=== PATIENT | male | born 1945 | race Caucasian/White ===

== ENCOUNTER 2018-01-28 12:19 | Outpatient (CLI) | payer MEDICARE, BC ==
--- NOTE | 2018-01-28 14:06 | RAD ---
TWO VIEWS CHEST: Date: 01-28-18 Comparison: 07-08-17 History: Dyspnea. FINDINGS: Increased linear interstitial density with pulmonary hyperinflation noted. Midline sternotomy wires a re present. No pneumothorax, pleural fluid, focal consolidation, or alveolar edema. IMPRESSION: Chronic findings as above. No acute findings are seen. POS: [facility]
== END 2018-01-28 12:20 | disposition home or self-care (01) ==
LOC: RAD 12:19
PROVIDERS: ATTEND Internal Medicine Critical Care Medicine
DX: R06.00 Dyspnea, unspecified (principal)
CPT/HCPCS: 71046

== ENCOUNTER 2018-03-21 06:52 | Emergency (ER) | payer MEDICARE, BC ==
[2018-03-21 07:28] LABS: #Eosinphils 0.1 thou/uL (0.0-0.7); #Lymphocytes 0.6 thou/uL (1.20-3.40); #Monocytes 0.1 thou/uL (0.11-0.59); #Neutrophils 6.7 thou/uL (1.40-6.50); %Basophils 0.3 % (0.0-1.0); %Eosinophils 0.9 % (0.0-10.0); %Monocytes 1.7 % (0.0-10.0); %Neutrophils 89.2 % (42.0-75.0); Hemoglobin 14.2 g/dL (14.0-18.0); Mean Corpuscular HGB CONC 33.9 g/dL (32.0-36.0); Mean Corpuscular Volume 91.5 fl (80.0-94.0); Mean Platelet Volume 7.7 fL (7.4-10.4); Platelet Count 158 thou/uL (130-400); RBC Distribution Width 12.8 % (11.5-14.5); Red Blood Cell (RBC) Count 4.57 mill/uL (4.70-6.10); White Blood Cell (WBC) Count 7.6 thou/uL (4.8-10.8)
[2018-03-21] MEDS ORDERED: methylPREDNISolone Sod Succ/PF 125 MG/2 ML VIAL ONE ×2 (07:29→07:35)
[2018-03-21] MEDS ORDERED: Water For Injection,Sterile 20 ML ONE (07:30)
--- NOTE | 2018-03-21 07:34 | RAD ---
FRONTAL RADIOGRAPH CHEST: Date: 03/21/18 COMPARISON: 07/26/15. HISTORY: Chest pain and shortness of breath. FINDINGS: Midline sternotomy wires are present. There is a new focal interstitial and alveolar opacity within t he right lung base. There is no pneumothorax or large volume pleural effusion. Left lung grossly unre markable. IMPRESSION: Focal interstitial and alveolar opacity in the right lung base suggests infectious pneumonitis/aspira tion. Follow-up imaging following treatment advised to document resolution. POS: [facility]
[2018-03-21] MEDS ORDERED: Water For Inject, Bacteriostat 30 ML ONE (07:35)
[2018-03-21 07:57] LABS: ALT (SGPT) 23 U/L (8-55); AST (SGOT) 21 U/L (5-34); Albumin 4.3 g/dL (3.4-4.8); Alkaline Phosphatase 69 U/L (40-150); Anion Gap 13 mmol/L (10-20); BUN (Urea Nitrogen) 15 mg/dL (8.4-25.7); Bilirubin, Total 0.8 mg/dL (0.2-1.2); CK (CPK) 60 U/L (30-200); Calc. Creatinine Clearance 0 mL/min (70-130); Calcium 9.8 mg/dL (7.8-10.44); Carbon Dioxide 27 mmol/L (23-31); Chloride 103 mmol/L (98-107); Estimated GFR-MDRD 82; Glucose 153 mg/dL (83-110); Potassium 4.2 mmol/L (3.5-5.1); Protein, Total 7.3 g/dL (5.8-8.1); Sodium 139 mmol/L (136-145)
[2018-03-21 08:01] LABS: CKMB 1.1 ng/mL (0-6.6); Troponin I Less than 0.010 ng/mL (< 0.028)
[2018-03-21 08:27] LABS: INR-International Normal Ratio 1.1; Prothrombin Time 14.1 SEC (12.0-14.7)
[2018-03-21 08:28] LABS: PTT 28.2 SEC (22.9-36.1)
[2018-03-21] MEDS ORDERED: Acetaminophen 500 MG TAB ONE (08:58)
== END 2018-03-21 10:54 | disposition home or self-care (01) ==
LOC: ERS 06:52
DX: J18.9 Pneumonia, unspecified organism (principal); I25.10 Atherosclerotic heart disease of native coronary artery without angina pectoris; J44.9 Chronic obstructive pulmonary disease, unspecified; Z79.899 Other long term (current) drug therapy; Z79.82 Long term (current) use of aspirin; Z79.891 Long term (current) use of opiate analgesic
CPT/HCPCS: 36415; 71045; 80053; 82550; 82553; 83605; 83880; 84484; 85025; 85610; 85730; 87040; 93005; 94640; 96374; J2930; J7620

== ENCOUNTER 2018-08-27 12:41 | Outpatient (CLI) | payer MEDICARE, BC ==
--- NOTE | 2018-08-27 13:12 | RAD ---
CHEST 2 VIEWS: HISTORY: Dyspnea. COMPARISON: 01/28/18 study. FINDINGS: Heart size is within normal limits. There are postop sternotomy changes. The lungs appear hyperexpa nded, suggesting an element of COPD. Old granuloma is seen in the left mid lung field. IMPRESSION: Chronic lung change. Stable chest. POS: [facility]
== END 2018-08-27 12:42 | disposition home or self-care (01) ==
LOC: RAD 12:41
PROVIDERS: ATTEND Internal Medicine Critical Care Medicine
DX: R06.00 Dyspnea, unspecified (principal)
CPT/HCPCS: 71046

== ENCOUNTER 2018-09-29 12:34 | Outpatient (CLI) | payer MEDICARE, BC ==
--- NOTE | 2018-09-29 14:02 | RAD ---
PA AND LATERAL CHEST: HISTORY: A 73-year-old male with a history of dyspnea. COMPARISON: 01/28/2018 FINDINGS: Postop midline sternotomy. Bilateral hyperinflation and chronic lung changes. Old granulomatous dis ease. Some increased linear parenchymal changes in the right lower lobe, which are new from the prio r study, which raise concern for the possibility of some mild right lower lobe pneumonitis and/or brenda e subsegmental atelectatic change. Mild stable left costophrenic angle blunting. IMPRESSION: 1. Hyperinflation and chronic lung changes with old granulomatous disease. 2. Some new linear and parenchymal changes in the right lower lobe, evidence for minimal lower lobe pneumonitis or subsegmental atelectasis since the prior study. 3. Postoperative midline sternotomy. 4. Atherosclerosis of the aorta with ectasia. POS: [facility]
== END 2018-09-29 12:35 | disposition home or self-care (01) ==
LOC: RAD 12:34
PROVIDERS: ATTEND Internal Medicine Critical Care Medicine
DX: R06.00 Dyspnea, unspecified (principal); I70.0 Atherosclerosis of aorta; I77.819 Aortic ectasia, unspecified site; R91.8 Other nonspecific abnormal finding of lung field; Z98.890 Other specified postprocedural states
CPT/HCPCS: 71046

== ENCOUNTER 2018-10-22 03:00 | Inpatient (IN) | payer MEDICARE, BC ==
[2018-10-22] MEDS ORDERED: Albuterol Sulfate 2.5 mg/3 ml Neb ONE ×2 (03:24→04:23)
[2018-10-22 03:42] LABS: Actual Bicarbonate (HCO3a) 21.3 mEq/L (22-28); Analyzer IN Cardio ER; Base Excess (BEa) -3.3 mEq/L (-2.0 to +3.0); CO2 Tension 37.6 mmHg (35.0-45.0); Calcium, Ionized 1.21 mmol/L (1.12-1.30); Carboxyhemoglobin (COHb) 0.6 gm% (0.0-3.0); Hemoglobin (Hb) 16.5 g/dL (14.0-18.0); O2 Tension (PaO2) 61.9 mmHg (> 70.0); Potassium - ABG Lab 4.21 mmol/L (3.70-5.30); pH, Arterial 7.37 (7.35-7.45)
[2018-10-22] MEDS ORDERED: methylPREDNISolone Sod Succ/PF 125 MG/2 ML VIAL ONE (03:42)
[2018-10-22] MEDS ORDERED: cefTRIAXone\\ROCEPHIN 2 GM VIAL ONE (03:42)
[2018-10-22] MEDS ORDERED: Magnesium 2 GM/50 ML BAG (IN WATER) ONE (03:42)
[2018-10-22] MEDS ORDERED: Azithromycin 500 MG VIAL ONE (03:42)
[2018-10-22] MEDS ORDERED: Water For Inject, Bacteriostat 30 ML ONE ×2 (03:43→03:45)
[2018-10-22 03:50] LABS: Puncture Site RRA
[2018-10-22 03:58] LABS: ALT (SGPT) 25 U/L (8-55); AST (SGOT) 24 U/L (5-34); Albumin 4.2 g/dL (3.4-4.8); Alkaline Phosphatase 63 U/L (40-150); Anion Gap 14 mmol/L (10-20); BUN (Urea Nitrogen) 19 mg/dL (8.4-25.7); Bilirubin, Total 0.8 mg/dL (0.2-1.2); CK (CPK) 32 U/L (30-200); Calc. Creatinine Clearance 0 mL/min (70-130); Calcium 9.9 mg/dL (7.8-10.44); Carbon Dioxide 25 mmol/L (23-31); Chloride 105 mmol/L (98-107); Estimated GFR-MDRD 65; Globulin 3.4 g/dL (2.4-3.5); Glucose 128 mg/dL (83-110); Mean Corpuscular HGB CONC 33.4 g/dL (32.0-36.0); Mean Corpuscular Hemoglobin 31.2 pg (27.0-31.0); Mean Corpuscular Volume 93.4 fL (78.0-98.0); Mean Platelet Volume 7.8 fL (7.4-10.4); Platelet Count 229 thou/uL (130-400); Potassium 4.3 mmol/L (3.5-5.1); Protein, Total 7.6 g/dL (5.8-8.1); RBC Distribution Width 13.3 % (11.5-14.5); Red Blood Cell (RBC) Count 5.13 mill/uL (4.70-6.10); Sodium 140 mmol/L (136-145); White Blood Cell (WBC) Count 4.1 thou/uL (4.8-10.8)
[2018-10-22] MEDS ORDERED: Ondansetron PF 4 MG/2 ML Vial ONE (04:00)
[2018-10-22 04:08] LABS: CKMB 1.3 ng/mL (0-6.6); Troponin I Less than 0.010 ng/mL (< 0.028)
[2018-10-22 04:21] LABS: Band 16 % (5-11); Lymphocytes 38 % (21-51); MDiff Complete? YES; Monocytes 6 % (0-10); Neutrophil 36 % (42-75)
[2018-10-22] MEDS ORDERED: Bisacodyl 5 MG TAB PO PRN (05:12)
[2018-10-22] MEDS ORDERED: Acetaminophen 325 MG TAB PO PRN (05:12)
[2018-10-22] MEDS ORDERED: Senokot S 8.6-50 MG TAB PO PRN (05:12)
[2018-10-22 05:46] LABS: Bilirubin Negative (Negative); Blood, Urine Negative (Negative); Clarity CLEAR (Clear); Glucose, Urine (Dipstick) Negative (Negative); Leukocyte Negative (Negative); Nitrite Negative (Negative); Protein, Urine (Dipstick) Negative (Neg-Trace); Specific Gravity, Urine 1.014 (1.002-1.036); Urobilinogen 0.2 mg/dL (0.2-1.0)
--- NOTE | 2018-10-22 06:35 | HP ---
PRIMARY CARE PHYSICIAN: Dr. Storm. CHIEF COMPLAINT: Shortness of breath. HISTORY OF PRESENT ILLNESS: The patient is a very pleasant 73-year-old male with a history of laguna ry artery disease, status post bypass; history of cardiac stents, who initially presented to the hosp [facility] with shortness of breath. The patient stated that about 2 or 3 weeks ago, he was treated for pn eumonia by his licensed embalmer with antibiotics which he does not recall the name of. The patient stat ed that he was doing well; however, last night started having significant amount of cough and very sh ort of breath. The patient denies any chest pain, chest pressure, nausea, vomiting, diarrhea or bein g near any sick contacts. The patient decided to come into the hospital since his shortness of breat h was pretty significant. The patient was found to be hypoxic, 75% on room air. At this time, he wa s put on BiPAP in the ER. PAST MEDICAL HISTORY: The patient has a history of CAD. He also has a history of COPD; however, he has never really had PFTs done. PAST SURGICAL HISTORY: He has had a bypass, hernia repair, and he has had a left thoracotomy with de cortication in 2003 secondary to empyema. SOCIAL HISTORY: Denies any alcohol use, drug use. He is a former smoker. The patient currently is a FULL CODE. PATIENT'S MEDICATIONS: As of the following: He takes carvedilol 6.25 b.i.d., ramipril 10 mg daily, aspirin 325 daily, terazosin 2 mg daily, omeprazole 20 mg daily, fish oil 1000 mg daily, multivitamin 1 daily, and zolpidem 12.5 mg once daily. ALLERGIES: He has no known drug allergies. PHYSICAL EXAMINATION: VITAL SIGNS: The patient had a temperature of 98.6, pulse was 101, respirations were 22, blood press ure was 103/80. GENERAL: He is awake, alert, on BiPAP, appears comfortable. He is currently 100% on BiPAP. CARDIOVASCULAR: S1, S2 present. Mild tachycardia is noted. LUNGS: He has got significant rhonchi to his right side of the lung and decreased breath sounds all over. No wheezing or crackles noted. ABDOMEN: Soft, nontender. Bowel sounds are present x2. EXTREMITIES: No edema. Pedal pulses are present x2. NEUROLOGIC: Neurovascular albrecht, no focal deficits noted. SKIN: No cuts, lesions, or bruises noted. The patient had a chest x-ray done which indicated significant pneumonia or infiltrate to his right s abner of the lung. LABORATORY RESULTS: WBCs of 4.1, hemoglobin of 16.0, hematocrit of 47.9. His bands are 16. [employer] ry: Sodium of 140, potassium of 4.3, BUN of 19, creatinine of 1.11. His lactic acid was 2.5. His t roponin initially was negative. EKG, no acute changes. ASSESSMENT AND PLAN: The patient is a very pleasant 73-year-old male who presents to the hospital wi th shortness of breath. 1. Acute hypoxemic respiratory failure. The patient currently is on BiPAP. We will continue to mon chrystal. We will start the patient on some IV antibiotics and admit him to the IMCU. 2. Sepsis. The patient does have significant elevated lactic acidosis. He is mildly leukopenic. H e is tachycardic, mild hypotensive and also hypoxic. He was recently diagnosed with pneumonia, was t reated with oral antibiotics; however, he does not recall the name. I will go ahead and treated with broad-spectrum antibiotics with vancomycin and Zosyn since his infiltrate on the x-ray is pretty sig nificant and also his onset was a very sudden onset. In the ER, he got 2 g of ceftriaxone and 500 mg of azithromycin. I am going to cover him for atypical for now since he has already been covered. 3. History of CAD. We will continue his home medications. 4. DVT prophylaxis. We will put patient on subcu heparin.
[2018-10-22 07:04] VITALS: BMI 26.9
[2018-10-22] MEDS: Piperacillin/Tazobactam 3.375 GM in Sodium Chloride 0.9% 100 ML IVPB SCH ×4 (07:10→23:31)
[2018-10-22] MEDS: Sodium Chloride 0.9% 1,000 ML IV SCH (07:10)
[2018-10-22 07:46] LABS: Lactic Acid 1.7 mmol/L (0.5-2.2)
[2018-10-22 08:11] LABS: Legionella Urinary Ag Negative (Negative); Strep pneumo Urine Ag NEGATIVE (NEGATIVE)
--- NOTE | 2018-10-22 08:30 | RAD ---
CHEST ONE VIEW: History: Pneumonia. Comparison: 09-29-18 FINDINGS: There are multifocal airspace opacities involving nearly the entire right lung. Left lung relatively clear. Multiple midline sternotomy wires. IMPRESSION: Multifocal bronchopneumonia right lung. POS: [facility]
[2018-10-22] MEDS ORDERED: Vancomycin HCl 1 GM in Premix Bag 1 BAG IVPB SCH (09:00)
[2018-10-22] MEDS ORDERED: Doxycycline 100 MG CAP PO SCH (09:00)
[2018-10-22] MEDS ORDERED: Heparin 5,000 UNITS/ML VIAL SC SCH (09:00)
[2018-10-22] MEDS: Vancomycin HCl 1.75 GM in Sodium Chloride 0.9% 500 ML IVPB SCH (09:03)
[2018-10-22] MEDS: Heparin 5,000 UNITS/ML VIAL SC SCH ×2 (09:04→20:53)
[2018-10-22] MEDS: Carvedilol 6.25 MG TAB PO SCH ×2 (09:04→17:31)
[2018-10-22] MEDS: Saccharomyces boulardii 250 MG CAP PO SCH (09:04)
--- NOTE | 2018-10-22 11:49 | CON ---
DATE OF CONSULTATION: 10/22/2018 HISTORY OF PRESENT ILLNESS: He is a 73-year-old gentleman who sees Dr. Dailey in our office d iagnosed pneumonia, he was given some antibiotics to which apparently he felt not much better, came t o the ER with worsening symptoms, cough, congestion, shortness of breath. He is coughing up some logan ssly bloody purulent sputum. He was started on broad-spectrum antibiotics last night, which has included vancomycin and Zosyn. X- ray shows a dense right lower lung alveolar infiltrate. The patient quit smoking some 20 years ago. He had a history of empyema in the left lung for which he underwent decortication years ago. He has also had a bypass surgery done sometime back by the same doctor, Dr. Green. This morning, he said he is feeling somewhat better. Prior to his recent illness, he says he could w alk a fair distance without getting markedly short of breath. His sats are 75% on room air on admiss ion and his temperature was 98, blood pressure was 174/105, respirations were about 36. PAST MEDICAL HISTORY: Previous pneumonia, COPD, coronary artery disease, empyema. PAST SURGICAL HISTORY: CABG, hernia operation, decortication. ALCOHOL: None. TOBACCO: Former. HOME MEDICATIONS: Includes Coreg 6.25 twice a day, omeprazole 20, Altace 10, Crestor 10, Hytrin 2, V itamin E. ALLERGIES: None. SOCIAL/FAMILY HISTORY: Unremarkable. REVIEW OF SYSTEMS: Ten point negative. PHYSICAL EXAMINATION: GENERAL: Sats are 92 on supplemental oxygen, blood pressure is 130/61, respiration 18, pulse 80. CHEST: Extensive rhonchi and crackles, right greater than left. CARDIAC: Normal S1, S2. No gallops. ABDOMEN: Soft. No mass. LABORATORY DATA: He has 36 segs, elevated neutrophil, white count 4000, H&H is 16 and 47, pO2 61, pC O2 of on a BiPAP. His creatinine is normal. Electrolytes are normal. GFR is 65, glucose 128. Albumin is low. Urine was normal. Influenza titer was negative. IMPRESSION: 1. Community-acquired pneumonia, right lung. 2. Chronic obstructive pulmonary disease. 3. Left decortication. 4. Coronary artery disease. 5. Smoker. PLAN: I agree with present antibiotics. We have ordered for Gram stain and C&S. Deescalate antibio tics once we get all the cultures back. I will notify Dr. Dailey. This is a consultation note of 70 minutes, in which 50% spent in direct patient care.
[2018-10-22] MEDS: Mometasone/Formoterol 120 PUFF INHALER INH SCH (19:10)
[2018-10-22] MEDS: Zolpidem Tartrate 5 MG TAB PO SCH (20:52)
[2018-10-22] MEDS: Terazosin HCl 1 MG CAP PO SCH (20:52)
[2018-10-22] MEDS: Rosuvastatin 10 MG TAB PO SCH (20:52)
[2018-10-23 04:35] LABS: Anion Gap 11 mmol/L (10-20); BUN (Urea Nitrogen) 15 mg/dL (8.4-25.7); Calc. Creatinine Clearance 86 mL/min (70-130); Calcium 8.9 mg/dL (7.8-10.44); Carbon Dioxide 24 mmol/L (23-31); Chloride 109 mmol/L (98-107); Estimated GFR-MDRD 84; Glucose 127 mg/dL (83-110); Magnesium 1.8 mg/dL (1.6-2.6); Sodium 140 mmol/L (136-145)
[2018-10-23] MEDS: Piperacillin/Tazobactam 3.375 GM in Sodium Chloride 0.9% 100 ML IVPB SCH ×4 (05:15→23:40)
[2018-10-23] MEDS: Sodium Chloride 0.9% 1,000 ML IV SCH ×2 (05:15→23:40)
[2018-10-23 06:35] LABS: Band 36 % (5-11); Hemoglobin 10.7 g/dL (14.0-18.0); Lymphocytes 10 % (21-51); MDiff Complete? YES; Mean Corpuscular HGB CONC 32.9 g/dL (32.0-36.0); Mean Corpuscular Hemoglobin 30.4 pg (27.0-31.0); Mean Corpuscular Volume 92.5 fL (78.0-98.0); Mean Platelet Volume 7.7 fL (7.4-10.4); Metamyelocyte 6 % (0-0); Monocytes 3 % (0-10); Myelocyte 1 % (0-0); Neutrophil 44 % (42-75); Platelet Count 137 thou/uL (130-400); Red Blood Cell (RBC) Count 3.51 mill/uL (4.70-6.10); White Blood Cell (WBC) Count 9.8 thou/uL (4.8-10.8)
[2018-10-23] MEDS: Mometasone/Formoterol 120 PUFF INHALER INH SCH ×2 (07:20→19:07)
[2018-10-23] MEDS: Heparin 5,000 UNITS/ML VIAL SC SCH ×2 (09:22→20:32)
[2018-10-23] MEDS: Carvedilol 6.25 MG TAB PO SCH ×3 (09:22→17:28)
[2018-10-23] MEDS: Saccharomyces boulardii 250 MG CAP PO SCH (09:22)
[2018-10-23] MEDS: Vancomycin HCl 1.75 GM in Sodium Chloride 0.9% 500 ML IVPB SCH (09:23)
--- NOTE | 2018-10-23 10:05 | RAD ---
FRONTAL VIEW CHEST: COMPARISON: 10/22/2018. INDICATION: Pneumonia followup. FINDINGS: Patchy right perihilar opacification remains as do diffuse interstitial opacities of the right lung. The left lung is stable. There is persistent pleural-based density with blunting of the left latera l costophrenic sulcus. No additional significant interval change. IMPRESSION: Persistent asymmetric opacification of the right lung. Continued followup as warranted. POS: [facility]
--- NOTE | 2018-10-23 16:16 | PDOC.PN ---
- Subjective Encounter Start Date: 10/23/18 Encounter Start Time: 11:00 Patient seen and examined for Pneumonia. Mild productive cough+. Feels slightly better. No new complaints. No overnight events - Objective Resuscitation Status: Resuscitation Status FULL:Full Resuscitation MAR Reviewed: Yes Vital Signs & Weight: Vital Signs (12 hours) Temp Pulse Resp BP BP Pulse Ox 10/23/18 15:18 60 22 H 137/70 98 10/23/18 14:56 58 L 22 H 98 10/23/18 11:21 99.4 F 63 20 131/59 L 96 10/23/18 11:19 54 L 24 H 98 10/23/18 09:30 114/63 10/23/18 08:00 97 10/23/18 07:25 99.8 F H 67 22 H 129/60 97 10/23/18 07:21 98 10/23/18 07:18 59 L 21 H 98 10/23/18 04:23 98.0 F 59 L 23 H 129/58 L 95 Weight Weight 184 lb 3.2 oz Most Recent Monitor Data Heart Rate from ECG 92 NIBP 128/66 NIBP BP-Mean 86 Respiration from ECG 24 SpO2 98 I&O: 10/22/18 10/23/18 10/24/18 06:59 06:59 06:59 Intake Total 2537 Output Total 1700 Balance 837 Result Diagrams: 10/24/18 04:01 10/24/18 04:01 Radiology Reviewed by me: Yes (CXR - Pneumonia) Phys Exam - Physical Examination Constitutional: NAD Respiratory: no wheezing Rt sided rhonchi Cardiovascular: RRR, no rub Gastrointestinal: soft, non-tender, positive bowel sounds Musculoskeletal: no edema Neurological: moves all 4 limbs Dx/Plan - Plan DVT proph w/lovenox, DVT proph w/SCDs 1. Acute hypoxic resp failure 2. CA Pneumonia ?Gram negative 3. COPD Exacerbation 4. Recent Pneumonia - completed Levaquin 5. CAD / CKD 2/ Other issues per previous notes PLAN: Cont Vancomycin/Zosyn/PO Levaquin with steroids Monitor Vancomycin Cont Coreg Cont other meds as below Review of Systems - Review of Systems Cardiovascular: negative: chest pain, palpitations, orthopnea, paroxysmal nocturnal dyspnea, edema, light headedness, other Gastrointestinal: negative: Nausea, Vomiting, Abdominal Pain, Diarrhea, Constipation, Melena, Hematochezia, Other - Medications/Allergies Allergies/Adverse Reactions: Allergies Allergy/AdvReac Type Severity Reaction Status Date / Time No Known Drug Allergies Allergy Verified 03/31/14 15:39 Medications: Current Medications Acetaminophen (Tylenol) 650 mg PO Q4H PRN PRN Reason: Headache/Fever/Mild Pain (1-3) Albuterol/Ipratropium (Duoneb) 3 ml NEB [id number] [facility] Last Admin: 10/23/18 14:56 Dose: 3 ml Bisacodyl (Dulcolax) 10 mg PO DAILYPRN PRN PRN Reason: Constipation Carvedilol (Coreg) 6.25 mg PO BID-WM [facility] Last Admin: 10/23/18 09:30 Dose: Not Given Heparin Sodium (Porcine) (Heparin) 5,000 units SC BID [facility] Last Admin: 10/23/18 09:22 Dose: 5,000 units Piperacillin Sod/Tazobactam (Sod 3.375 gm/ Sodium Chloride) 100 mls @ 200 mls/ hr IVPB Q6HR [facility] Last Admin: 10/23/18 12:39 Dose: 100 mls Sodium Chloride (Normal Saline 0.9%) 1,000 mls @ 50 mls/hr IV .Q20H [facility] Last Admin: 10/23/18 05:15 Dose: 1,000 mls Vancomycin HCl 1.75 gm/ Sodium (Chloride) 500 mls @ 250 mls/hr IVPB 0900 [facility] Last Admin: 10/23/18 09:23 Dose: 500 mls Levofloxacin (Levaquin) 750 mg PO 0600 [facility] Stop: 10/28/18 06:01 Last Admin: 10/23/18 05:16 Dose: 750 mg Methylprednisolone Sodium Succinate (Solu-Medrol) 40 mg IVP Q6HR [facility] Last Admin: 10/23/18 12:39 Dose: 40 mg Miscellaneous Medication (Pharmacy To Dose) 0 each IVPB ASDIR PRN PRN Reason: Pharmacy to Dose VANCOMYCIN Mometasone Furoate/Formoterol Fumar (Dulera 200 Mcg/5 Mcg Inhaler) 2 puff INH BID-RT [facility] Last Admin: 10/23/18 07:20 Dose: 2 puff Pantoprazole Sodium (Protonix) 40 mg PO DAILY [facility] Last Admin: 10/23/18 09:23 Dose: 40 mg Rosuvastatin Calcium (Crestor) 10 mg PO HS [facility] Last Admin: 10/22/18 20:52 Dose: 10 mg Saccharomyces Boulardii (Florastor) 250 mg PO DAILY [facility] Last Admin: 10/23/18 09:22 Dose: 250 mg Senna/Docusate Sodium (Senokot S) 2 tab PO BID PRN PRN Reason: Constipation Terazosin HCl (Hytrin) [address] [facility] Last Admin: 10/22/18 20:52 Dose: 2 mg Zolpidem Tartrate (Ambien) 7.[address] [facility] Last Admin: 10/22/18 20:52 Dose: 7.5 mg
--- NOTE | 2018-10-23 18:05 | PRG ---
DATE OF SERVICE: 10/23/2018 SUBJECTIVE: Mr. Fraga is in no distress. OBJECTIVE: VITALS: He is afebrile, heart rates in the 50s, respiratory rates in the 20s, oximetry is 98 on 3 li ters, blood pressure 131/59. Intake and output is positive at 837. LUNGS: Remarkable for decreased breath sounds anteriorly on the right and rhonchorous wheezes on the right. HEART: Regular rhythm. ABDOMEN: Soft and nontender. EXTREMITIES: Without clubbing, cyanosis, or edema. DIAGNOSTIC DATA: Chest radiograph shows an alveolar infiltrate in the right lung. IMPRESSION: 1. Pneumonia. 2. Chronic obstructive pulmonary disease exacerbation. 3. Past history of left lung decortication for pneumonia. 4. Coronary artery disease. 5. History of tobacco use. PLAN: Continue supportive care. Continue antimicrobials. Cultures from yesterday are negative so max ellis.
[2018-10-23] MEDS: Zolpidem Tartrate 5 MG TAB PO SCH (20:32)
[2018-10-23] MEDS: Terazosin HCl 1 MG CAP PO SCH (20:32)
[2018-10-23] MEDS: Rosuvastatin 10 MG TAB PO SCH (20:32)
[2018-10-24 04:30] LABS: #Lymphocytes 0.5 thou/uL (1.20-3.40); #Monocytes 0.3 thou/uL (0.11-0.59); #Neutrophils 10.3 thou/uL (1.40-6.50); %Basophils 0.3 % (0.0-1.0); %Eosinophils 0.1 % (0.0-10.0); %Lymphocytes 4.5 % (21.0-51.0); %Neutrophils 92.2 % (42.0-75.0); Mean Corpuscular HGB CONC 33.7 g/dL (32.0-36.0); Mean Corpuscular Hemoglobin 31.2 pg (27.0-31.0); Mean Corpuscular Volume 92.5 fL (78.0-98.0); Mean Platelet Volume 8.3 fL (7.4-10.4); Platelet Count 140 thou/uL (130-400); RBC Distribution Width 12.8 % (11.5-14.5); Red Blood Cell (RBC) Count 3.52 mill/uL (4.70-6.10); White Blood Cell (WBC) Count 11.1 thou/uL (4.8-10.8)
[2018-10-24 04:54] LABS: Anion Gap 12 mmol/L (10-20); BUN (Urea Nitrogen) 14 mg/dL (8.4-25.7); Calc. Creatinine Clearance 89 mL/min (70-130); Calcium 9.1 mg/dL (7.8-10.44); Carbon Dioxide 24 mmol/L (23-31); Chloride 111 mmol/L (98-107); Estimated GFR-MDRD 86; Glucose 126 mg/dL (83-110); Potassium 3.8 mmol/L (3.5-5.1); Sodium 143 mmol/L (136-145)
[2018-10-24] MEDS: Piperacillin/Tazobactam 3.375 GM in Sodium Chloride 0.9% 100 ML IVPB SCH ×4 (06:18→23:31)
[2018-10-24] MEDS: Mometasone/Formoterol 120 PUFF INHALER INH SCH ×2 (06:39→18:27)
[2018-10-24] MEDS: Saccharomyces boulardii 250 MG CAP PO SCH (08:32)
[2018-10-24] MEDS: Carvedilol 6.25 MG TAB PO SCH ×2 (08:32→16:25)
[2018-10-24] MEDS: Vancomycin HCl 1.75 GM in Sodium Chloride 0.9% 500 ML IVPB SCH (08:32)
[2018-10-24] MEDS: Heparin 5,000 UNITS/ML VIAL SC SCH ×2 (08:33→20:44)
[2018-10-24 10:08] LABS: Vancomycin, Trough 19.4 ug/mL
--- NOTE | 2018-10-24 13:45 | PRG ---
DATE OF SERVICE: 10/24/2018 SUBJECTIVE: Mr. Fraga is doing much better. He is standing, walking around the room, says he feel s much better than he did on admission. OBJECTIVE: VITAL SIGNS: He is afebrile, respiratory rate is 15, heart rate is 73, blood pressure 173/79. LUNGS: Still remarkable for crackles at both bases, more so on the right. HEART: Regular rhythm. ABDOMEN: Soft and nontender. EXTREMITIES: Without clubbing, cyanosis or edema. LABORATORY DATA: White count is 11.1, hemoglobin 11.0, platelets 140,000. Sodium 143, potassium 3.8 , chloride 111, bicarbonate 24, BUN 14, creatinine 0.87. IMPRESSION AND PLAN: Pneumonia, predominantly right sided, right lower lobe. He is dramatically bet ter. He actually took a shower and said he felt better, but he also has significant amount of anxiet y. I was considering transferring him up to the medical unit, but he wanted to stay in the [facility] Unit for monitoring 1 more day. I think this is reasonable. I did start him on alprazolam 0.25 mg 3 times a day just to be given routinely. I have asked for him to refuse it if it makes him too sleepy. Hopefully, tomorrow morning we can transfer him up to a medical bed.
[2018-10-24] MEDS: ALPRAZolam 0.25 MG TAB PO SCH ×2 (14:15→20:44)
[2018-10-24] MEDS: Sodium Chloride 0.9% 1,000 ML IV SCH (17:07)
[2018-10-24] MEDS: Terazosin HCl 1 MG CAP PO SCH (20:44)
[2018-10-24] MEDS: Rosuvastatin 10 MG TAB PO SCH (20:44)
[2018-10-24] MEDS: hydrALAZINE 20 MG/ML VIAL SLOW IVP PRN (21:11)
--- NOTE | 2018-10-24 22:34 | PDOC.PN ---
- Subjective Encounter Start Date: 10/24/18 Encounter Start Time: 11:30 Patient seen and examined for Pneumonia. No new complaints. Overnight events noted - Objective Resuscitation Status: Resuscitation Status FULL:Full Resuscitation MAR Reviewed: Yes Vital Signs & Weight: Vital Signs (12 hours) Temp Pulse Resp BP BP Pulse Ox 10/24/18 21:11 61 199/102 H 10/24/18 20:47 64 22 H 204/95 H 93 L 10/24/18 19:20 98.0 F 60 24 H 180/87 H 96 10/24/18 16:25 114/63 10/24/18 15:29 99.3 F 18 155/71 H 10/24/18 13:50 71 20 10/24/18 11:11 97.9 F 15 173/79 H 93 L Weight Weight 184 lb 12.8 oz Most Recent Monitor Data Heart Rate from ECG 92 NIBP 128/66 NIBP BP-Mean 86 Respiration from ECG 24 SpO2 98 I&O: 10/23/18 10/24/18 10/25/18 06:59 06:59 06:59 Intake Total 2537 1858 1460 Output Total 1700 2170 2101 Balance 921 -303 -440 Result Diagrams: 10/24/18 04:01 10/24/18 04:01 Phys Exam - Physical Examination Constitutional: NAD Respiratory: no wheezing, no rhonchi Rt sided rales Cardiovascular: RRR, no rub Gastrointestinal: soft, non-tender, positive bowel sounds Musculoskeletal: no edema Neurological: moves all 4 limbs Dx/Plan - Plan DVT proph w/SCDs 1. Acute hypoxic resp failure 2. CA Pneumonia ?Gram negative 3. COPD Exacerbation - improving 4. Recent Pneumonia - completed Levaquin 5. CAD / CKD 2/ Anxiety / Other issues per previous notes PLAN: Cont Zosyn/PO Levaquin with steroid taper Vancomycin dced Cont other meds as below Xanax started for Anxiety Review of Systems - Review of Systems Respiratory: Cough, Dry. negative: Shortness of Breath, Hemoptysis, SOB with Excertion, Pleuritic Pain, Sputum, Wheezing Cardiovascular: negative: chest pain, palpitations, orthopnea, paroxysmal nocturnal dyspnea, edema, light headedness, other - Medications/Allergies Allergies/Adverse Reactions: Allergies Allergy/AdvReac Type Severity Reaction Status Date / Time No Known Drug Allergies Allergy Verified 03/31/14 15:39 Medications: Current Medications Acetaminophen (Tylenol) 650 mg PO Q4H PRN PRN Reason: Headache/Fever/Mild Pain (1-3) Albuterol/Ipratropium (Duoneb) 3 ml NEB [id number] [facility] Last Admin: 10/24/18 22:25 Dose: 3 ml Alprazolam (Xanax) 0.25 mg PO TID [facility] Last Admin: 10/24/18 20:44 Dose: 0.25 mg Bisacodyl (Dulcolax) 10 mg PO DAILYPRN PRN PRN Reason: Constipation Carvedilol (Coreg) 6.25 mg PO BID-WM [facility] Last Admin: 10/24/18 16:25 Dose: 6.25 mg Hydralazine HCl (Apresoline) 10 mg SLOW IVP Q4H PRN PRN Reason: SBP > 180 OR DBP > 100 Last Admin: 10/24/18 21:11 Dose: 10 mg Piperacillin Sod/Tazobactam (Sod 3.375 gm/ Sodium Chloride) 100 mls @ 200 mls/ hr IVPB Q6HR [facility] Last Admin: 10/24/18 16:25 Dose: 100 mls Sodium Chloride (Normal Saline 0.9%) 1,000 mls @ 50 mls/hr IV .Q20H [facility] Last Admin: 10/24/18 17:07 Dose: 1,000 mls Levofloxacin (Levaquin) 750 mg PO 0600 [facility] Stop: 10/28/18 06:01 Last Admin: 10/24/18 06:18 Dose: 750 mg Methylprednisolone Sodium Succinate (Solu-Medrol) 20 mg IVP Q6HR [facility] Last Admin: 10/24/18 16:25 Dose: 20 mg Miscellaneous Medication (Pharmacy To Dose) 0 each IVPB ASDIR PRN PRN Reason: Pharmacy to Dose VANCOMYCIN Mometasone Furoate/Formoterol Fumar (Dulera 200 Mcg/5 Mcg Inhaler) 2 puff INH BID-RT [facility] Last Admin: 10/24/18 18:27 Dose: 2 puff Pantoprazole Sodium (Protonix) 40 mg PO DAILY [facility] Last Admin: 10/24/18 08:32 Dose: 40 mg Rosuvastatin Calcium (Crestor) 10 mg PO HS [facility] Last Admin: 10/24/18 20:44 Dose: 10 mg Saccharomyces Boulardii (Florastor) 250 mg PO DAILY [facility] Last Admin: 10/24/18 08:32 Dose: 250 mg Senna/Docusate Sodium (Senokot S) 2 tab PO BID PRN PRN Reason: Constipation Terazosin HCl (Hytrin) 2 mg PO HS [facility] Last Admin: 10/24/18 20:44 Dose: 2 mg
[2018-10-25] MEDS: Piperacillin/Tazobactam 3.375 GM in Sodium Chloride 0.9% 100 ML IVPB SCH ×4 (05:42→23:35)
[2018-10-25] MEDS: Mometasone/Formoterol 120 PUFF INHALER INH SCH ×2 (06:21→18:35)
[2018-10-25] MEDS: Carvedilol 6.25 MG TAB PO SCH ×2 (09:07→16:04)
[2018-10-25] MEDS: Saccharomyces boulardii 250 MG CAP PO SCH (09:08)
[2018-10-25] MEDS: ALPRAZolam 0.25 MG TAB PO SCH ×2 (09:08→16:05)
[2018-10-25] MEDS: Sodium Chloride 0.9% 1,000 ML IV SCH (16:04)
[2018-10-25] MEDS ORDERED: cloNIDine 0.1 MG TAB PO PRN (19:55)
--- NOTE | 2018-10-25 19:59 | PDOC.PN ---
- Subjective Encounter Start Date: 10/25/18 Encounter Start Time: 11:00 Patient seen and examined for Resp failure. Intermittent cough + No new complaints. No overnight events - Objective Resuscitation Status: Resuscitation Status FULL:Full Resuscitation MAR Reviewed: Yes Vital Signs & Weight: Vital Signs (12 hours) Temp Pulse Resp BP BP Pulse Ox 10/25/18 19:47 98.1 F 60 25 H 179/89 H 91 L 10/25/18 18:35 57 L 16 96 10/25/18 16:04 120/86 10/25/18 15:52 98.7 F 58 L 26 H 154/78 H 94 L 10/25/18 14:12 60 20 97 10/25/18 11:28 98.8 F 63 29 H 133/73 94 L 10/25/18 11:27 61 20 95 10/25/18 09:07 120/86 10/25/18 08:00 96 Weight Weight 182 lb 8 oz Most Recent Monitor Data Heart Rate from ECG 92 NIBP 128/66 NIBP BP-Mean 86 Respiration from ECG 24 SpO2 98 I&O: 10/24/18 10/25/18 10/26/18 06:59 06:59 06:59 Intake Total 1858 3120 980 Output Total 2170 3676 1200 Balance -312 -556 -220 Result Diagrams: 10/24/18 04:01 10/24/18 04:01 EKG Reviewed by me: Yes (Tele SR) Phys Exam - Physical Examination Constitutional: NAD Respiratory: no wheezing Rt sided rales and rhonchi + Cardiovascular: RRR, no rub Gastrointestinal: soft, non-tender, positive bowel sounds Musculoskeletal: no edema Neurological: moves all 4 limbs Dx/Plan - Plan DVT proph w/SCDs 1. Acute hypoxic resp failure 2. CA Pneumonia ?Gram negative 3. COPD Exacerbation - improving 4. Recent Pneumonia - completed Levaquin 5. CAD / CKD 2/ Anxiety / Other issues per previous notes PLAN: Cont Coreg Ramipril restarted Cont Zosyn/PO Levaquin On IV Steroids Cont other meds as below Review of Systems - Review of Systems Respiratory: Cough, Dry. negative: Shortness of Breath, Hemoptysis, SOB with Excertion, Pleuritic Pain, Sputum, Wheezing Cardiovascular: negative: chest pain, palpitations, orthopnea, paroxysmal nocturnal dyspnea, edema, light headedness, other - Medications/Allergies Allergies/Adverse Reactions: Allergies Allergy/AdvReac Type Severity Reaction Status Date / Time No Known Drug Allergies Allergy Verified 03/31/14 15:39 Medications: Current Medications Acetaminophen (Tylenol) 650 mg PO Q4H PRN PRN Reason: Headache/Fever/Mild Pain (1-3) Albuterol/Ipratropium (Duoneb) 3 ml NEB [id number] [facility] Last Admin: 10/25/18 18:35 Dose: 3 ml Alprazolam (Xanax) 0.25 mg PO 0900,1500 [facility] Bisacodyl (Dulcolax) 10 mg PO DAILYPRN PRN PRN Reason: Constipation Carvedilol (Coreg) 6.25 mg PO BID-WM [facility] Last Admin: 10/25/18 16:04 Dose: 6.25 mg Clonidine (Catapres) 0.1 mg PO Q4H PRN PRN Reason: Systolic BP > 180 Hydralazine HCl (Apresoline) 10 mg SLOW IVP Q4H PRN PRN Reason: SBP > 180 OR DBP > 100 Last Admin: 10/24/18 21:11 Dose: 10 mg Piperacillin Sod/Tazobactam (Sod 3.375 gm/ Sodium Chloride) 100 mls @ 200 mls/ hr IVPB Q6HR [facility] Last Admin: 10/25/18 17:47 Dose: 100 mls Levofloxacin (Levaquin) 750 mg PO 0600 [facility] Stop: 10/28/18 06:01 Last Admin: 10/25/18 05:42 Dose: 750 mg Methylprednisolone Sodium Succinate (Solu-Medrol) 20 mg IVP Q6HR [facility] Last Admin: 10/25/18 17:47 Dose: 20 mg Miscellaneous Medication (Pharmacy To Dose) 0 each IVPB ASDIR PRN PRN Reason: Pharmacy to Dose VANCOMYCIN Mometasone Furoate/Formoterol Fumar (Dulera 200 Mcg/5 Mcg Inhaler) 2 puff INH BID-RT [facility] Last Admin: 10/25/18 18:35 Dose: 2 puff Pantoprazole Sodium (Protonix) 40 mg PO DAILY [facility] Last Admin: 10/25/18 09:08 Dose: 40 mg Ramipril (Altace) 10 mg PO DAILY [facility] Ramipril (Altace) 10 mg PO 2100 [facility] Rosuvastatin Calcium (Crestor) 10 mg PO HS [facility] Last Admin: 10/24/18 20:44 Dose: 10 mg Saccharomyces Boulardii (Florastor) 250 mg PO DAILY [facility] Last Admin: 10/25/18 09:08 Dose: 250 mg Senna/Docusate Sodium (Senokot S) 2 tab PO BID PRN PRN Reason: Constipation Sodium Chloride (Flush - Normal Saline) 10 ml IVF Q12HR [facility] Sodium Chloride (Flush - Normal Saline) 10 ml IVF PRN PRN PRN Reason: Saline Flush Terazosin HCl (Hytrin) 2 mg PO HS [facility] Last Admin: 10/24/18 20:44 Dose: 2 mg Zolpidem Tartrate (Ambien) 7.5 mg PO HS [facility]
--- NOTE | 2018-10-25 20:57 | PRG ---
DATE OF SERVICE: 10/25/2018 SUBJECTIVE: Mr. Fraga says he is feeling better. He wants his Ambien for sleep. States he has be en sleeping with this for years. OBJECTIVE: VITALS: He is afebrile. Intake and outputs negative 556, heart rate is 58, respiratory rate is 26, oximetry is 94 on 3 liters, blood pressure 154/78. LUNGS: Still remarkable for wheezes bilaterally. Crackles at his right base. HEART: Regular rhythm. ABDOMEN: Soft and nontender. EXTREMITIES: Without clubbing, cyanosis, or edema. LABORATORY DATA: There is no new lab today. IMPRESSION: 1. Pneumonia. 2. Chronic obstructive pulmonary disease. 3. History of left lung decortication, pneumonia is on the right. 4. Anxiety, better with alprazolam. There are no medical unit bed, so he will stay in the Intermediate Care Unit for now.
[2018-10-25] MEDS ORDERED: Ramipril 5 MG CAP PO SCH ×2 (21:00)
[2018-10-25] MEDS: Terazosin HCl 1 MG CAP PO SCH (21:06)
[2018-10-25] MEDS: Rosuvastatin 10 MG TAB PO SCH (21:07)
[2018-10-25] MEDS: Zolpidem Tartrate 5 MG TAB PO SCH (21:07)
[2018-10-26] MEDS: hydrALAZINE 20 MG/ML VIAL SLOW IVP PRN (04:45)
[2018-10-26] MEDS: Piperacillin/Tazobactam 3.375 GM in Sodium Chloride 0.9% 100 ML IVPB SCH ×4 (05:00→23:20)
[2018-10-26] MEDS: Mometasone/Formoterol 120 PUFF INHALER INH SCH ×2 (07:01→19:12)
[2018-10-26] MEDS: Saccharomyces boulardii 250 MG CAP PO SCH (08:48)
[2018-10-26] MEDS: ALPRAZolam 0.25 MG TAB PO SCH ×2 (08:48→15:20)
[2018-10-26] MEDS: Carvedilol 6.25 MG TAB PO SCH ×2 (08:48→17:59)
--- NOTE | 2018-10-26 08:48 | PRG ---
DATE OF SERVICE: 10/26/2018 He feels better than 3 days ago, but still is having difficulty with cough, congestion, and with ambu lation. PHYSICAL EXAMINATION: VITAL SIGNS: Temperature 98.1, pulse 76, respirations 22, O2 sat 96% on 3 liters, blood pressure 95/ 62. GENERAL: He appears acutely ill. HEENT: Unremarkable. NECK: No JVD. LUNGS: Coarse rhonchi bilaterally, right greater than left. CARDIAC: S1 and S2 regular. ABDOMEN: Soft. EXTREMITIES: No edema. ASSESSMENT: 1. Right-sided pneumonia - organism not identified. 2. Chronic obstructive pulmonary disease. PLAN: Continue antibiotics, steroids, nebulization treatments. He needs more time. He can be moved out to the medical floor.
[2018-10-26] MEDS ORDERED: Ramipril 5 MG CAP PO SCH (09:00)
--- NOTE | 2018-10-26 14:29 | PQF ---
DATE: 10-26-18 ATTN: DR. EDWARD GODINEZ Please exercise your independent, professional judgment in responding to the clarification form. Clinical indicators are provided on the bottom of this form for your review Please check appropriate box(s) to clarify if the following diagnosis has been ruled in or ruled out: (CDI/Coding list diagnosis here) [ ] Ruled in diagnosis [ ] Continue to treat [ ] Resolved [ ] Ruled out diagnosis [ ] Other diagnosis [ ] Unable to determine In addition, please specify: Present on Admission (POA): [ ] Yes [ ] No [ ] Unable to determine For continuity of documentation, please document condition throughout progress notes and discharge summary. Thank You. CLINICAL INDICATORS - SIGNS / SYMPTOMS / LABS ER DX: SEPSIS, PNEUMONIA H&P: SEPSIS, ACUTE HYPOXEMIC RESPIRATORY FAILURE WBC: 10-22-18: 4.1 10-24-18: 11.1 BANDS: 10-22-18: 16 10-23-18: 36 LACTIC ACID: 10-22-18: 2.5 TEMP: 10-22-18: 99.9 10-23-18: 99.8 RR: 10-22-18: 26, 26, 25, 21, 25, 24 RISK FACTORS: ER: PT HAS PNEUMONIA 3-4 WEEKS AGO, HAS PRODUCTIVE COUGH, DX OF SEPSIS, PNEUMONIA H&P: SEPSIS. PT DOES HAS SIGNIFICANT ELEVATED LACTIC ACIDOSIS , HE IS MILDLY LEUKOPENIC, HE IS TACHYCARDIC, MILD HYPOTENSIVE AND ALSO HYPOXIC. RECENTLY DIAGNOSED WITH PNEUMONIA, WAS TREATED WITH ORAL ANTIBIOTICS TREATMENTS: H&P: WILL GO AHEAD AND TREAT WITH BROAD-SPECTRUM ANTIBIOTICS WITH VANCOMYCIN AND ZOSYN SINCE HIS INFILTRATE ON XRAY IS PRETTY SIGNIFICANT AND ALSO HIS ONSET A VERY SUDDEN ONSET. IN ER HE GOT 2G CEFTRIAXONE AND AZITHROMYCIN (This form is maintained as a part of the permanent medical record) 2014 [employer] All Rights Reserved KARLA [email or web address] Office: [phone] [facility] HEALTHMiroslava
--- NOTE | 2018-10-26 18:42 | PDOC.PN ---
- Subjective Encounter Start Date: 10/26/18 Encounter Start Time: 11:30 Patient seen and examined for Pneumonia. Feels better. No new complaints. No overnight event. - Objective Resuscitation Status: Resuscitation Status FULL:Full Resuscitation MAR Reviewed: Yes Vital Signs & Weight: Vital Signs (12 hours) Temp Pulse Resp BP BP Pulse Ox 10/26/18 17:59 135/79 10/26/18 16:29 97.3 F L 79 18 135/79 93 L 10/26/18 13:57 82 18 92 L 10/26/18 11:29 93 L 10/26/18 11:00 98.0 F 83 20 135/78 93 L 10/26/18 10:04 96 18 10/26/18 09:40 95/62 10/26/18 08:48 95/62 10/26/18 08:00 96 10/26/18 07:43 98.1 F 76 22 H 95/62 96 10/26/18 07:01 81 20 10/26/18 06:43 95 10/26/18 06:42 81 20 Weight Weight 174 lb 4.8 oz Most Recent Monitor Data Heart Rate from ECG 92 NIBP 128/66 NIBP BP-Mean 86 Respiration from ECG 24 SpO2 98 I&O: 10/25/18 10/26/18 10/27/18 06:59 06:59 06:59 Intake Total 3120 2110 2170 Output Total 3676 2400 1800 Balance -556 -290 370 Result Diagrams: 10/24/18 04:01 10/24/18 04:01 Phys Exam - Physical Examination Constitutional: NAD Respiratory: no wheezing, no rhonchi Rt sided rales Cardiovascular: RRR, no rub Gastrointestinal: soft, non-tender, positive bowel sounds Musculoskeletal: no edema Psychiatric: A&O x 3 Dx/Plan - Plan DVT proph w/SCDs 1. Acute hypoxic resp failure 2. Sepsis due to CA Pneumonia ?Gram negative 3. COPD Exacerbation - improving 4. Recent Pneumonia - completed Levaquin 5. CAD / CKD 2/ Anxiety / Other issues per previous notes PLAN: Cont Coreg/Ramipril Cont Zosyn/PO Levaquin/Steroids On IV Steroids Cont other meds as below Review of Systems - Review of Systems Respiratory: Cough. negative: Dry, Shortness of Breath, Hemoptysis, SOB with Excertion, Pleuritic Pain, Sputum, Wheezing Cardiovascular: negative: chest pain, palpitations, orthopnea, paroxysmal nocturnal dyspnea, edema, light headedness, other Gastrointestinal: negative: Nausea, Vomiting, Abdominal Pain, Diarrhea, Constipation, Melena, Hematochezia, Other - Medications/Allergies Allergies/Adverse Reactions: Allergies Allergy/AdvReac Type Severity Reaction Status Date / Time No Known Drug Allergies Allergy Verified 03/31/14 15:39 Medications: Current Medications Acetaminophen (Tylenol) 650 mg PO Q4H PRN PRN Reason: Headache/Fever/Mild Pain (1-3) Albuterol/Ipratropium (Duoneb) 3 ml NEB [id number] [facility] Last Admin: 10/26/18 13:57 Dose: 3 ml Alprazolam (Xanax) 0.25 mg PO 0900,1500 [facility] Last Admin: 10/26/18 15:20 Dose: 0.25 mg Bisacodyl (Dulcolax) 10 mg PO DAILYPRN PRN PRN Reason: Constipation Carvedilol (Coreg) 6.25 mg PO BID-WM [facility] Last Admin: 10/26/18 17:59 Dose: 6.25 mg Clonidine (Catapres) 0.1 mg PO Q4H PRN PRN Reason: Systolic BP > 180 Hydralazine HCl (Apresoline) 10 mg SLOW IVP Q4H PRN PRN Reason: SBP > 180 OR DBP > 100 Last Admin: 10/26/18 04:45 Dose: 10 mg Piperacillin Sod/Tazobactam (Sod 3.375 gm/ Sodium Chloride) 100 mls @ 200 mls/ hr IVPB Q6HR [facility] Last Admin: 10/26/18 17:57 Dose: 100 mls Levofloxacin (Levaquin) 750 mg PO 0600 [facility] Stop: 10/28/18 06:01 Last Admin: 10/26/18 05:00 Dose: 750 mg Methylprednisolone Sodium Succinate (Solu-Medrol) 20 mg IVP Q6HR [facility] Last Admin: 10/26/18 17:56 Dose: 20 mg Miscellaneous Medication (Pharmacy To Dose) 0 each IVPB ASDIR PRN PRN Reason: Pharmacy to Dose VANCOMYCIN Mometasone Furoate/Formoterol Fumar (Dulera 200 Mcg/5 Mcg Inhaler) 2 puff INH BID-RT [facility] Last Admin: 10/26/18 07:01 Dose: 2 puff Pantoprazole Sodium (Protonix) 40 mg PO DAILY [facility] Last Admin: 10/26/18 08:48 Dose: 40 mg Ramipril (Altace) 10 mg PO 2100 RED Rosuvastatin Calcium (Crestor) 10 mg PO HS [facility] Last Admin: 10/25/18 21:07 Dose: 10 mg Saccharomyces Boulardii (Florastor) 250 mg PO DAILY [facility] Last Admin: 10/26/18 08:48 Dose: 250 mg Senna/Docusate Sodium (Senokot S) 2 tab PO BID PRN PRN Reason: Constipation Sodium Chloride (Flush - Normal Saline) 10 ml IVF Q12HR [facility] Last Admin: 10/26/18 08:49 Dose: 10 ml Sodium Chloride (Flush - Normal Saline) 10 ml IVF PRN PRN PRN Reason: Saline Flush Terazosin HCl (Hytrin) 2 mg PO HS [facility] Last Admin: 10/25/18 21:06 Dose: 2 mg Zolpidem Tartrate (Ambien) 7.5 mg PO HS [facility] Last Admin: 10/25/18 21:07 Dose: 7.5 mg
[2018-10-26] MEDS: Ramipril 5 MG CAP PO SCH (20:19)
[2018-10-26] MEDS: Zolpidem Tartrate 5 MG TAB PO SCH (20:20)
[2018-10-26] MEDS: Rosuvastatin 10 MG TAB PO SCH (20:20)
[2018-10-26] MEDS: Terazosin HCl 1 MG CAP PO SCH (21:08)
[2018-10-27] MEDS ORDERED: Chloraseptic Spray 180 ml Bottle PO PRN (03:26)
[2018-10-27 05:17] LABS: Anion Gap 12 mmol/L (10-20); BUN (Urea Nitrogen) 24 mg/dL (8.4-25.7); Calc. Creatinine Clearance 83 mL/min (70-130); Calcium 8.6 mg/dL (7.8-10.44); Carbon Dioxide 23 mmol/L (23-31); Chloride 108 mmol/L (98-107); Estimated GFR-MDRD 84; Glucose 118 mg/dL (83-110); Potassium 3.5 mmol/L (3.5-5.1); Sodium 139 mmol/L (136-145)
[2018-10-27] MEDS: Piperacillin/Tazobactam 3.375 GM in Sodium Chloride 0.9% 100 ML IVPB SCH (05:40)
[2018-10-27 05:56] LABS: Band 1 % (5-11); Lymphocytes 6 % (21-51); MDiff Complete? YES; Mean Corpuscular HGB CONC 34.1 g/dL (32.0-36.0); Mean Corpuscular Hemoglobin 31.4 pg (27.0-31.0); Mean Corpuscular Volume 92.1 fL (78.0-98.0); Mean Platelet Volume 7.8 fL (7.4-10.4); Monocytes 4 % (0-10); Neutrophil 89 % (42-75); Platelet Count 159 thou/uL (130-400); RBC Distribution Width 12.8 % (11.5-14.5); Red Blood Cell (RBC) Count 3.83 mill/uL (4.70-6.10)
[2018-10-27] MEDS: Mometasone/Formoterol 120 PUFF INHALER INH SCH ×2 (07:07→19:39)
[2018-10-27] MEDS: ALPRAZolam 0.25 MG TAB PO SCH ×2 (08:27→16:18)
[2018-10-27] MEDS: Saccharomyces boulardii 250 MG CAP PO SCH (08:27)
[2018-10-27] MEDS: Carvedilol 6.25 MG TAB PO SCH ×2 (08:30→16:18)
--- NOTE | 2018-10-27 09:05 | PRG ---
DATE OF SERVICE: 10/27/2018 Mr. Fraga is slowly improving. He had no acute complaints. PHYSICAL EXAMINATION: VITAL SIGNS: Temperature 97.6, pulse 64, blood pressure 134/81, O2 sat 94%. HEENT: Unremarkable. NECK: No JVD. LUNGS: A few crackles in the right base, left side clear. CARDIAC: S1 and S2 regular. ABDOMEN: Soft. EXTREMITIES: No edema. LABORATORY DATA: White blood cell count 7, hematocrit 35.3, platelet count 159. Sodium 139, potassi um 3.5, BUN 24, creatinine 0.8, glucose 118. ASSESSMENT: Community-acquired pneumonia. PLAN: The Zosyn will be stopped and he will be started on Omnicef. Increase activity as tolerated. He can probably go home tomorrow if he has a good day today.
[2018-10-27] MEDS: Cefdinir 300 MG CAP PO SCH (10:00)
[2018-10-27] MEDS: predniSONE 20 MG TAB PO SCH ×2 (10:00→20:17)
--- NOTE | 2018-10-27 20:13 | PDOC.PN ---
- Subjective Encounter Start Date: 10/27/18 Encounter Start Time: 09:00 Patient seen and examined for Pneumonia. Feels better. Intermittent cough +. No new complaints. No overnight events - Objective Resuscitation Status - Order Detail: 10/27/18 12:24 Resuscitation Status Routine Resuscitation Status: FULL: Full Resuscitation Discussed with: per prior order MAR Reviewed: Yes Vital Signs & Weight: Vital Signs (12 hours) Temp Pulse Resp BP BP Pulse Ox 10/27/18 19:21 97.5 F L 85 18 155/86 H 96 10/27/18 19:17 91 16 10/27/18 16:18 154/85 H 10/27/18 16:16 97.8 F 84 20 154/89 H 93 L 10/27/18 14:18 90 16 10/27/18 12:13 97.8 F 85 20 157/87 H 92 L 10/27/18 10:09 60 16 10/27/18 08:33 94 L 10/27/18 08:31 134/84 10/27/18 08:30 134/81 Weight Weight 174 lb 4.8 oz Most Recent Monitor Data Heart Rate from ECG 92 NIBP 128/66 NIBP BP-Mean 86 Respiration from ECG 24 SpO2 98 I&O: 10/26/18 10/27/18 10/28/18 06:59 06:59 06:59 Intake Total 2110 2870 750 Output Total 2400 1800 1400 Balance -290 1070 -650 Result Diagrams: 10/27/18 04:39 10/27/18 04:39 Phys Exam - Physical Examination Constitutional: NAD Respiratory: no wheezing Rt sided rales/rhonchi Cardiovascular: RRR, no rub Gastrointestinal: soft, non-tender, positive bowel sounds Musculoskeletal: no edema Neurological: moves all 4 limbs Dx/Plan - Plan DVT proph w/SCDs 1. Acute hypoxic resp failure 2. Sepsis due to [place] Pneumonia ?Gram negative 3. COPD Exacerbation - improving 4. Recent Pneumonia - completed Levaquin 5. CAD / CKD 2/ Anxiety / Other issues per previous notes PLAN: Wean O2 Cont Coreg/Ramipril Started on Omnicef Steroids changed to PO Cont other meds as below Review of Systems - Review of Systems Respiratory: Cough, SOB with Excertion, Sputum Cardiovascular: negative: chest pain, palpitations, orthopnea, paroxysmal nocturnal dyspnea, edema, light headedness, other Gastrointestinal: negative: Nausea, Vomiting, Abdominal Pain, Diarrhea, Constipation, Melena, Hematochezia, Other - Medications/Allergies Allergies/Adverse Reactions: Allergies Allergy/AdvReac Type Severity Reaction Status Date / Time No Known Drug Allergies Allergy Verified 03/31/14 15:39 Medications: Current Medications Acetaminophen (Tylenol) 650 mg PO Q4H PRN PRN Reason: Headache/Fever/Mild Pain (1-3) Albuterol/Ipratropium (Duoneb) 3 ml NEB [id number] [facility] Last Admin: 10/27/18 19:17 Dose: 3 ml Alprazolam (Xanax) 0.25 mg PO 0900,1500 [facility] Last Admin: 10/27/18 16:18 Dose: 0.25 mg Bisacodyl (Dulcolax) 10 mg PO DAILYPRN PRN PRN Reason: Constipation Carvedilol (Coreg) 6.25 mg PO BID-WM [facility] Last Admin: 10/27/18 16:18 Dose: 6.25 mg Cefdinir (Omnicef) 600 mg PO DAILY [facility] Last Admin: 10/27/18 10:00 Dose: 600 mg Clonidine (Catapres) 0.1 mg PO Q4H PRN PRN Reason: Systolic BP > 180 Hydralazine HCl (Apresoline) 10 mg SLOW IVP Q4H PRN PRN Reason: SBP > 180 OR DBP > 100 Last Admin: 10/26/18 04:45 Dose: 10 mg Levofloxacin (Levaquin) 750 mg PO 0600 [facility] Stop: 10/28/18 06:01 Last Admin: 10/27/18 05:40 Dose: 750 mg Miscellaneous Medication (Pharmacy To Dose) 0 each IVPB ASDIR PRN PRN Reason: Pharmacy to Dose VANCOMYCIN Mometasone Furoate/Formoterol Fumar (Dulera 200 Mcg/5 Mcg Inhaler) 2 puff INH BID-RT [facility] Last Admin: 10/27/18 19:39 Dose: 2 puff Pantoprazole Sodium (Protonix) 40 mg PO DAILY [facility] Last Admin: 10/27/18 08:27 Dose: 40 mg Phenol (Chloraseptic [place] 180 Ml Bot) 0 ml PO PRN PRN PRN Reason: SORE THROAT Last Admin: 10/27/18 05:40 Dose: 2 spr Prednisone (Prednisone) 20 mg PO BID [facility] Last Admin: 10/27/18 10:00 Dose: 20 mg Ramipril (Altace) 10 mg PO 2100 [facility] Last Admin: 10/26/18 20:19 Dose: 10 mg Rosuvastatin Calcium (Crestor) 10 mg PO HS [facility] Last Admin: 10/26/18 20:20 Dose: 10 mg Saccharomyces Boulardii (Florastor) 250 mg PO DAILY [facility] Last Admin: 10/27/18 08:27 Dose: 250 mg Senna/Docusate Sodium (Senokot S) 2 tab PO BID PRN PRN Reason: Constipation Sodium Chloride (Flush - Normal Saline) 10 ml IVF Q12HR [facility] Last Admin: 10/27/18 08:27 Dose: 10 ml Sodium Chloride (Flush - Normal Saline) 10 ml IVF PRN PRN PRN Reason: Saline Flush Terazosin HCl (Hytrin) 2 mg PO HS [facility] Last Admin: 10/26/18 21:08 Dose: 2 mg Zolpidem Tartrate (Ambien) 7.5 mg PO [facility] Last Admin: 10/26/18 20:20 Dose: 7.5 mg
[2018-10-27] MEDS: Ramipril 5 MG CAP PO SCH (20:18)
[2018-10-27] MEDS: Rosuvastatin 10 MG TAB PO SCH (20:18)
[2018-10-27] MEDS: Terazosin HCl 1 MG CAP PO SCH (20:19)
[2018-10-27] MEDS: Zolpidem Tartrate 5 MG TAB PO SCH (22:01)
[2018-10-28] MEDS: Mometasone/Formoterol 120 PUFF INHALER INH SCH ×2 (06:32→18:16)
[2018-10-28] MEDS: Cefdinir 300 MG CAP PO SCH (07:45)
[2018-10-28] MEDS: ALPRAZolam 0.25 MG TAB PO SCH ×2 (07:45→15:22)
[2018-10-28] MEDS: Carvedilol 6.25 MG TAB PO SCH ×2 (07:45→15:21)
[2018-10-28] MEDS: predniSONE 20 MG TAB PO SCH ×2 (07:46→20:19)
[2018-10-28] MEDS: Saccharomyces boulardii 250 MG CAP PO SCH (07:47)
--- NOTE | 2018-10-28 10:22 | PRG ---
DATE OF SERVICE: 10/28/2018 SUBJECTIVE: He still feels lousy and does not feel like he is capable of going home. OBJECTIVE: VITAL SIGNS: On exam, temperature 97.6, pulse 92, blood pressure 155/86, O2 sat 98% on room air. HEENT: Unremarkable. NECK: No JVD. LUNGS: Much clearer than they have been. CARDIAC: S1 and S2, regular. ABDOMEN: Soft. EXTREMITIES: No edema. ASSESSMENT: Pneumonia. PLAN: Continue antibiotics, steroids, and breathing treatments. Hopefully, home once his oxygen level improves. Job ID: [id number]
--- NOTE | 2018-10-28 14:55 | PDOC.PN ---
- Subjective Encounter Start Date: 10/28/18 Encounter Start Time: 11:00 Patient seen and examined for Resp failure. SOB on mild exertion. Dry cough +. No other complaints. No overnight events - Objective Resuscitation Status - Order Detail: 10/27/18 12:24 Resuscitation Status Routine Resuscitation Status: FULL: Full Resuscitation Discussed with: per prior order MAR Reviewed: Yes Vital Signs & Weight: Vital Signs (12 hours) Temp Pulse Resp BP BP Pulse Ox 10/28/18 14:19 110 H 16 10/28/18 10:28 90 16 10/28/18 07:50 90 L 10/28/18 07:45 155/86 H 10/28/18 07:28 97.6 F 92 20 114/71 91 L 10/28/18 06:32 70 14 Weight Weight 174 lb 4.8 oz Most Recent Monitor Data Heart Rate from ECG 92 NIBP 128/66 NIBP BP-Mean 86 Respiration from ECG 24 SpO2 98 I&O: 10/27/18 10/28/18 10/29/18 06:59 06:59 06:59 Intake Total 2870 1350 480 Output Total 1800 1400 Balance 1070 -50 480 Result Diagrams: 10/27/18 04:39 10/27/18 04:39 Phys Exam - Physical Examination Constitutional: NAD Respiratory: no wheezing Rt sided rales and rhonchi Cardiovascular: RRR, no rub Gastrointestinal: soft, positive bowel sounds Musculoskeletal: no edema Neurological: moves all 4 limbs Dx/Plan - Plan DVT proph w/SCDs 1. Acute hypoxic resp failure - improving 2. Sepsis due to [place] Pneumonia ?Gram negative 3. COPD Exacerbation - improving 4. Recent Pneumonia - completed Levaquin 5. CAD / CKD 2/ Anxiety / Other issues per previous notes PLAN: Cont to wean O2 Cont Omnicef and Steroids Cont other meds as below DC in 24-48 hr if stable Review of Systems - Review of Systems Cardiovascular: negative: chest pain, palpitations, orthopnea, paroxysmal nocturnal dyspnea, edema, light headedness, other Gastrointestinal: negative: Nausea, Vomiting, Abdominal Pain, Diarrhea, Constipation, Melena, Hematochezia, Other - Medications/Allergies Allergies/Adverse Reactions: Allergies Allergy/AdvReac Type Severity Reaction Status Date / Time No Known Drug Allergies Allergy Verified 03/31/14 15:39 Medications: Current Medications Acetaminophen (Tylenol) 650 mg PO Q4H PRN PRN Reason: Headache/Fever/Mild Pain (1-3) Albuterol/Ipratropium (Duoneb) 3 ml NEB [id number] [facility] Last Admin: 10/28/18 14:19 Dose: 3 ml Alprazolam (Xanax) 0.25 mg PO 0900,1500 [facility] Last Admin: 10/28/18 07:45 Dose: 0.25 mg Bisacodyl (Dulcolax) 10 mg PO DAILYPRN PRN PRN Reason: Constipation Carvedilol (Coreg) 6.25 mg PO BID-WM [facility] Last Admin: 10/28/18 07:45 Dose: 6.25 mg Cefdinir (Omnicef) 600 mg PO DAILY [facility] Last Admin: 10/28/18 07:45 Dose: 600 mg Clonidine (Catapres) 0.1 mg PO Q4H PRN PRN Reason: Systolic BP > 180 Hydralazine HCl (Apresoline) 10 mg SLOW IVP Q4H PRN PRN Reason: SBP > 180 OR DBP > 100 Last Admin: 10/26/18 04:45 Dose: 10 mg Miscellaneous Medication (Pharmacy To Dose) 0 each IVPB ASDIR PRN PRN Reason: Pharmacy to Dose VANCOMYCIN Mometasone Furoate/Formoterol Fumar (Dulera 200 Mcg/5 Mcg Inhaler) 2 puff INH BID-RT [facility] Last Admin: 10/28/18 06:32 Dose: 2 puff Pantoprazole Sodium (Protonix) 40 mg PO DAILY [facility] Last Admin: 10/28/18 07:46 Dose: 40 mg Phenol (Chloraseptic [place] 180 Ml Bot) 0 ml PO PRN PRN PRN Reason: SORE THROAT Last Admin: 10/27/18 05:40 Dose: 2 spr Prednisone (Prednisone) 20 mg PO BID [facility] Last Admin: 10/28/18 07:46 Dose: 20 mg Ramipril (Altace) 10 mg PO 2100 [facility] Last Admin: 10/27/18 20:18 Dose: 10 mg Rosuvastatin Calcium (Crestor) 10 mg PO HS [facility] Last Admin: 10/27/18 20:18 Dose: 10 mg Saccharomyces Boulardii (Florastor) 250 mg PO DAILY [facility] Last Admin: 10/28/18 07:47 Dose: 250 mg Senna/Docusate Sodium (Senokot S) 2 tab PO BID PRN PRN Reason: Constipation Sodium Chloride (Flush - Normal Saline) 10 ml IVF Q12HR [facility] Last Admin: 10/28/18 07:47 Dose: 10 ml Sodium Chloride (Flush - Normal Saline) 10 ml IVF PRN PRN PRN Reason: Saline Flush Terazosin HCl (Hytrin) 2 mg PO HS [facility] Last Admin: 10/27/18 20:19 Dose: 2 mg Zolpidem Tartrate (Ambien) 7.5 mg PO HS [facility] Last Admin: 10/27/18 22:01 Dose: 7.5 mg
[2018-10-28] MEDS: Terazosin HCl 1 MG CAP PO SCH (20:19)
[2018-10-28] MEDS: Ramipril 5 MG CAP PO SCH (20:19)
[2018-10-28] MEDS: Rosuvastatin 10 MG TAB PO SCH (20:20)
[2018-10-28] MEDS: Zolpidem Tartrate 5 MG TAB PO SCH (21:55)
[2018-10-29] MEDS: Mometasone/Formoterol 120 PUFF INHALER INH SCH (06:03)
[2018-10-29 07:13] VITALS: BP 131/73; TEMP 98.4
[2018-10-29] MEDS: Carvedilol 6.25 MG TAB PO SCH (07:59)
[2018-10-29] MEDS: Saccharomyces boulardii 250 MG CAP PO SCH (07:59)
[2018-10-29] MEDS: predniSONE 20 MG TAB PO SCH (07:59)
[2018-10-29] MEDS: Cefdinir 300 MG CAP PO SCH (07:59)
[2018-10-29] MEDS: ALPRAZolam 0.25 MG TAB PO SCH (08:00)
--- NOTE | 2018-10-29 09:05 | PRG ---
DATE OF SERVICE: 10/29/2018 SUBJECTIVE: He feels okay and he is ready to go home. OBJECTIVE: VITAL SIGNS: On exam, temperature 98.4, pulse 67, blood pressure 131/73, and O2 sat 94%. HEENT: Unremarkable. NECK: No JVD. LUNGS: Clear to auscultation. CARDIAC: S1 and S2, regular. ABDOMEN: Soft. EXTREMITIES: No edema. ASSESSMENT: Pneumonia, which is better. PLAN: The patient should be discharged on antibiotics and receive a total of 10 days of treatment between hospital and home. I gave him prescription for nebulizer and DuoNeb. I will taper his prednisone over about a week. He should follow up in 3 weeks with an x-ray. Job ID: [id number]
--- NOTE | 2018-10-29 12:48 | DIS ---
DATE OF ADMISSION: 10/22/2018 DATE OF DISCHARGE: 10/29/2018 DISCHARGE DISPOSITION: Home. FOLLOWUP: 1. Follow up with primary care physician, Dr. Samuel Storm in one week. 2. Follow up with Dr. Dailey as scheduled. ALLERGIES: NO KNOWN DRUG ALLERGIES. THE PATIENT WAS SEEN ON THE DAY OF DISCHARGE. DENIES ANY NEW COMPLAINTS. SHORTNESS OF BREATH HAS SIGNIFICANTLY IMPROVED. 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 BRIEF HOSPITAL COURSE: The patient is a 73-year-old male with recent pneumonia, presented to the hospital with worsening shortness of breath on October 22, 2018. Please refer to the history and physical for further details. The patient was admitted to the intensive care unit with a diagnosis of acute hypoxic respiratory failure. His oxygen in the emergency room was 75% on room air. Next day, noninvasive positive pressure ventilation was weaned off. He was placed on broad-spectrum antibiotics including vancomycin, Zosyn, and Levaquin per Critical Care recommendation. He will be discharged home on Omnicef along with tapering steroids. He has been cleared by Pulmonary for discharge. He will follow up with Pulmonary as outpatient. FINAL DIAGNOSES: 1. Acute hypoxic respiratory failure secondary to community-acquired pneumonia, suspected gram negative. 2. Sepsis with acute organ dysfunction secondary to community-acquired pneumonia. 3. Coronary artery disease. 4. Suspected chronic obstructive pulmonary disease with chronic obstructive pulmonary disease exacerbation. Please note that the patient never had PFTs per the patient's report. 5. Chronic kidney disease, stage 2. 6. Anxiety. 7. History of coronary artery bypass grafting. 8. Lactic acidosis on admission with lactic acid of 2.5. Plan of care was discussed with the patient in detail. He stated understanding. DIAGNOSTIC TEST: 1. Urine for Strep pneumoniae antigen and Legionella antigen was negative. 2. ABG showed pH of 7.37 with pCO2 of 37.6, PO2 of 61.9, on 100% FiO2 with noninvasive positive pressure ventilation. Job ID: [id number]
--- NOTE | 2018-10-31 18:41 | EKG ---
Test Reason : Blood Pressure : / mmHG Vent. Rate : 104 BPM Atrial Rate : 104 BPM P-R Int : 148 ms QRS Dur : 084 ms QT Int : 320 ms P-R-T Axes : 026 -43 035 degrees QTc Int : 420 ms Sinus tachycardia Left axis deviation Inferior infarct , age undetermined Abnormal ECG Confirmed by CINDI HENRY DO ([id number]), scientific publications editor GLENN BILL ([id number]) on 10/31/2018 6:41:18 PM Referred By: Confirmed By:CINDI HENRY DO
== END 2018-10-29 10:42 | disposition home or self-care (01) | DRG 871 ==
LOC: ERS 03:00 → CCU 05:05 → IMCU/EMU 08:04 → T4-B 10-26 10:31
PROVIDERS: ADMIT Internal Medicine; ATTEND Internal Medicine
DX: A41.50 Gram-negative sepsis, unspecified (principal); J96.01 Acute respiratory failure with hypoxia; J15.6 Pneumonia due to other Gram-negative bacteria; J44.1 Chronic obstructive pulmonary disease with (acute) exacerbation; J44.0 Chronic obstructive pulmonary disease with (acute) lower respiratory infection; E87.2 Acidosis; R65.20 Severe sepsis without septic shock; I25.10 Atherosclerotic heart disease of native coronary artery without angina pectoris; N18.2 Chronic kidney disease, stage 2 (mild); F41.9 Anxiety disorder, unspecified; Z87.891 Personal history of nicotine dependence; Z95.1 Presence of aortocoronary bypass graft; Z79.82 Long term (current) use of aspirin; Z79.899 Other long term (current) drug therapy
CPT/HCPCS: 36415; 71045; 80048; 80053; 80202; 81003; 82274; 82550; 82553; 82805; 83605; 83735; 83880; 84484; 85025; 87040; 87070; 87086; 87205; 87804; 87899; 90471; 90662; 93005; 94640; 94660; 96361; 96365; 96368; 96375; G0008; J0360; J0456; J0696; J1644; J2405; J2543; J2920; J2930; J3370; J7050; J7506; J7611; J7620

== ENCOUNTER 2018-11-19 13:25 | Outpatient (CLI) | payer MEDICARE, BC ==
--- NOTE | 2018-11-19 15:03 | RAD ---
PA AND LATERAL CHEST RADIOGRAPH: Date: 11-19-18 History: Dyspnea. Comparison: 10-23-18 FINDINGS: Previously noted parenchyma opacity within the right perihilar location, paramediastinal location, delgado s now resolved suggesting resolution of pneumonia. Calcified granuloma is again seen on the left. [place] gs are otherwise clear. Cardiac silhouette and pulmonary vasculature are within normal limits. Vascul ar calcifications are seen in the thoracic aorta. No other interval change. IMPRESSION: 1. No acute cardiopulmonary process. 2. Resolution of interstitial and alveolar opacities in the right paramediastinal and right parahilar location suggesting resolution of pneumonia. POS: ANA PAULA
== END 2018-11-19 13:26 | disposition home or self-care (01) ==
LOC: RAD 13:25
PROVIDERS: ATTEND Internal Medicine Critical Care Medicine
DX: R06.00 Dyspnea, unspecified (principal)
CPT/HCPCS: 71046

== ENCOUNTER 2019-10-14 13:03 | Outpatient (CLI) | payer MEDICARE, BC ==
--- NOTE | 2019-10-14 13:31 | RAD ---
CHEST 2 VIEWS: COMPARISON: 11/19/2018. HISTORY: Dyspnea. FINDINGS: Stable sternotomy wires and atherosclerosis. Normal cardiac silhouette. Blunting of the left costophrenic angle likely due to small effusion or atelectasis. Right costophren ic angle is clear. No consolidation or mass. No pneumothorax or osseous abnormalities. IMPRESSION: 1. Atherosclerosis. 2. Blunting of the left costophrenic angle may be due to small effusion or atelectasis. Transcribed Date/Time: 10/14/2019 1:37 PM
== END 2019-10-14 13:04 | disposition home or self-care (01) ==
LOC: RAD 13:03
PROVIDERS: ATTEND Internal Medicine Critical Care Medicine
DX: R06.00 Dyspnea, unspecified (principal); I70.90 Unspecified atherosclerosis
CPT/HCPCS: 71046

== ENCOUNTER 2020-07-31 13:52 | Inpatient (IN) | payer MEDICARE, BC ==
[2020-07-31] MEDS ORDERED: Azithromycin 500 MG in Sodium Chloride 0.9% 250 ML 250 ML IVPB SCH (14:30)
[2020-07-31] MEDS ORDERED: Acetaminophen 325 MG TAB PO PRN (14:31)
[2020-07-31] MEDS ORDERED: Ibuprofen 200 MG TAB PO PRN (14:34)
[2020-07-31 15:42] LABS: INR-International Normal Ratio 1.1; PTT 33.8 sec (22.9-36.1); Prothrombin Time 13.9 sec (12.0-14.7)
[2020-07-31 16:00] LABS: ALT (SGPT) 18 U/L (8-55); AST (SGOT) 19 U/L (5-34); Albumin 4.3 g/dL (3.4-4.8); Alkaline Phosphatase 61 U/L (40-110); Anion Gap 18 mmol/L (10-20); BUN (Urea Nitrogen) 24 mg/dL (8.4-25.7); Bilirubin, Total 1.6 mg/dL (0.2-1.2); Calc. Creatinine Clearance 0 mL/min (70-130); Calcium 9.4 mg/dL (7.8-10.44); Carbon Dioxide 23 mmol/L (23-31); Chloride 102 mmol/L (98-107); Estimated GFR-MDRD 56; Globulin 3.2 g/dL (2.4-3.5); Glucose 106 mg/dL (83-110); Potassium 4.6 mmol/L (3.5-5.1); Protein, Total 7.5 g/dL (5.8-8.1); Sodium 138 mmol/L (136-145)
[2020-07-31 16:03] LABS: Band 70 % (5-11); Hemoglobin 15.2 g/dL (14.0-18.0); Lymphocytes 3 % (21-51); MDiff Complete? YES; Mean Corpuscular HGB CONC 33.9 g/dL (32.0-36.0); Mean Corpuscular Hemoglobin 30.8 pg (27.0-31.0); Mean Corpuscular Volume 90.8 fL (78.0-98.0); Mean Platelet Volume 8.2 fL (7.4-10.4); Metamyelocyte 6 % (0-0); Monocytes 4 % (0-10); Myelocyte 2 % (0-0); Neutrophil 13 % (42-75); Platelet Count 194 thou/uL (130-400); Platelet Morphology Comment Appears Adequate; Polychromasia SLIGHT = 2-3 cells (100X) (0-2/hpf); RBC Distribution Width 13.5 % (11.5-14.5); Reactive Lymphocytes 2 % (0-10); Red Blood Cell (RBC) Count 4.93 mill/uL (4.70-6.10); Reflex for Review?? YES; White Blood Cell (WBC) Count 16.4 thou/uL (4.8-10.8)
[2020-07-31] MEDS: methylPREDNISolone Sod Succ 40 MG VIAL IVP SCH (16:12)
[2020-07-31] MEDS: Sodium Chloride 0.9% 1,000 ML IV SCH (16:13)
[2020-07-31 16:35] VITALS: BMI 27.0
[2020-07-31] MEDS: Piperacillin/Tazobactam 3.375 GM in Sodium Chloride 0.9% 100 ML IVPB SCH (19:11)
[2020-07-31] MEDS: Terazosin HCl 1 MG CAP PO SCH (20:52)
[2020-07-31] MEDS: Rosuvastatin 10 MG TAB PO SCH (20:52)
[2020-07-31] MEDS: Carvedilol 6.25 MG TAB PO SCH (20:52)
[2020-07-31] MEDS: Ramipril 5 MG CAP PO SCH (20:52)
--- NOTE | 2020-07-31 22:25 | HP ---
REASON FOR ADMISSION: Pneumonia, community acquired. HISTORY OF PRESENT ILLNESS: Mr. Fraga is a 75-year-old who presented to my office today with several days of increasing shortness of breath, cough and congestion. He had a fever up to 101 at home. He has a history of multiple pneumonias requiring hospitalization in the past. He denies any exposure to COVID. He has not been out in public and has been limiting his activities to home. PAST MEDICAL HISTORY: 1. COPD. 2. Pneumonia. 3. Coronary artery disease. PAST SURGICAL HISTORY: 1. Coronary artery bypass grafting surgery. 2. Hernia repair. 3. Left thoracotomy and decortication for empyema. SOCIAL HISTORY: Former smoker. Does not consume alcohol. MEDICATIONS: Prior to admission: 1. Carvedilol 6.25 mg b.i.d. 2. Crestor 10 mg b.i.d. 3. Aspirin 325 mg daily. 4. Protonix 40 mg daily. 5. Ramipril 5 mg nightly. 6. Terazosin 2 mg nightly. 7. Ambien unknown dose at night. ALLERGIES: NONE. REVIEW OF SYSTEMS: He has had some hemoptysis, some subjective fever, and chills. No hematemesis, melena, hematochezia, hematuria, or dysuria. PHYSICAL EXAMINATION: VITAL SIGNS: Temperature was 97.5, O2 saturation 88% on room air, pulse 114, blood pressure 123/70. GENERAL: He appears toxic. HEENT: Unremarkable. NECK: No adenopathy or JVD. LUNGS: He has crackles over the left side. Right side clear. CARDIAC: S1, S2. Tachycardic. ABDOMEN: Soft and nontender to palpation. EXTREMITIES: No clubbing, cyanosis, or edema. LABORATORY DATA: CBC, comp met, PT, PTT, INR, and COVID test are pending. Chest x-ray shows a rather sizable left-sided infiltrate. ASSESSMENT: 1. Community-acquired pneumonia. 2. Acute hypoxic respiratory failure. PLAN: The patient will be admitted to the hospital for the purpose of IV antibiotics, IV fluids and general supportive care. I will go ahead and hold enoxaparin because of his recent hemoptysis. He will be put on Protonix for GI prophylaxis. The main reasons he needs to be admitted here is hypoxemia, tachycardia, bilobar pneumonia on the left, and advanced age. His protested him being admitted because she is concerned she would not be able to see him. I have told her that my concern was him getting the best care and that cannot be done at home at this time. Job ID: [id number]
[2020-08-01] MEDS: methylPREDNISolone Sod Succ 40 MG VIAL IVP SCH ×4 (00:56→17:51)
[2020-08-01] MEDS: Piperacillin/Tazobactam 3.375 GM in Sodium Chloride 0.9% 100 ML IVPB SCH ×4 (00:56→17:48)
[2020-08-01] MEDS: Sodium Chloride 0.9% 1,000 ML IV SCH ×3 (03:00→16:13)
[2020-08-01] MEDS: Aspirin 325 MG TAB PO SCH (08:34)
[2020-08-01] MEDS: Rosuvastatin 10 MG TAB PO SCH ×2 (08:34→21:49)
[2020-08-01] MEDS: Carvedilol 6.25 MG TAB PO SCH ×2 (08:35→21:49)
[2020-08-01] MEDS: Albuterol 200 PUFF (6.7GM INHALER) INH SCH ×2 (10:43→14:09)
--- NOTE | 2020-08-01 10:49 | PRG ---
DATE OF SERVICE: 08/01/2020 SUBJECTIVE: The patient feels much better today compared to yesterday. He says his chest pain has resolved on the left side. PHYSICAL EXAMINATION: VITAL SIGNS: Temperature is 98.9, pulse 85, blood pressure 164/73, O2 saturation 96% on 2 L. HEENT: Unremarkable. NECK: No adenopathy or JVD. LUNGS: Diffuse crackles on the left. Clear on the right. CARDIAC: S1 and S2. Regular. ABDOMEN: Soft. EXTREMITIES: No edema. LABORATORY DATA: Micro shows no growth today. White blood cell count 16.4, hematocrit 44.8, platelet count 194, 13% neutrophils, 70% bands. Sodium 138, potassium 4.6, BUN 24, creatinine 1.2, and glucose 106. ASSESSMENT: 1. Acute bacterial pneumonia - organism unidentified, pneumococcus suspected. 2. Prerenal azotemia - volume depletion which has improved with saline administration. PLAN: Continue IV antibiotics, breathing treatments, IV fluids and steroids. Discontinue COVID-19 isolation when we get the results of his antigen back. Job ID: [id number]
[2020-08-01 12:30] LABS: SARS-CoV-2 MS2 Positive; SARS-CoV-2 N Gene Negative; SARS-CoV-2 S Gene Negative; SARS-CoV-2 by NAA Not Detected (NotDetected); SARS-CoV-2 orf1ab Negative
[2020-08-01] MEDS: Azithromycin 250 MG in Sodium Chloride 0.9% 250 ML 250 ML IVPB SCH (16:05)
[2020-08-01] MEDS: Ramipril 5 MG CAP PO SCH (21:48)
[2020-08-01] MEDS: Terazosin HCl 1 MG CAP PO SCH (21:48)
[2020-08-01] MEDS: Zolpidem Tartrate 5 MG TAB PO PRN (21:49)
[2020-08-02] MEDS: Piperacillin/Tazobactam 3.375 GM in Sodium Chloride 0.9% 100 ML IVPB SCH ×5 (00:35→23:40)
[2020-08-02] MEDS: methylPREDNISolone Sod Succ 40 MG VIAL IVP SCH ×5 (00:35→23:38)
[2020-08-02 06:25] LABS: #Lymphocytes 0.9 thou/uL (1.20-3.40); #Monocytes 0.4 thou/uL (0.11-0.59); #Neutrophils 13.2 thou/uL (1.40-6.50); %Basophils 0.2 % (0.0-1.0); %Eosinophils 0.1 % (0.0-10.0); %Lymphocytes 6.1 % (21.0-51.0); %Monocytes 2.7 % (0.0-10.0); Mean Corpuscular HGB CONC 33.8 g/dL (32.0-36.0); Mean Corpuscular Volume 91.7 fL (78.0-98.0); Mean Platelet Volume 8.6 fL (7.4-10.4); Platelet Count 161 thou/uL (130-400); RBC Distribution Width 13.3 % (11.5-14.5); Red Blood Cell (RBC) Count 3.54 mill/uL (4.70-6.10); White Blood Cell (WBC) Count 14.5 thou/uL (4.8-10.8)
[2020-08-02 06:43] LABS: Anion Gap 12 mmol/L (10-20); BUN (Urea Nitrogen) 21 mg/dL (8.4-25.7); Calc. Creatinine Clearance 80 mL/min (70-130); Calcium 8.5 mg/dL (7.8-10.44); Carbon Dioxide 21 mmol/L (23-31); Chloride 109 mmol/L (98-107); Estimated GFR-MDRD 78; Glucose 132 mg/dL (83-110); Potassium 4.2 mmol/L (3.5-5.1); Sodium 138 mmol/L (136-145)
--- NOTE | 2020-08-02 07:55 | RAD ---
EXAM: Single view of the chest HISTORY: Pneumonia COMPARISON: 10/23/2018 FINDINGS: Single view of the chest shows a normal sized cardiomediastinal silhouette. The patient is status post sternotomy. Multifocal mixed opacities are seen in the left lung consistent with pneumonia. No acute osseous abnormality. IMPRESSION: Left-sided pneumonia
[2020-08-02] MEDS: Enoxaparin Sodium 40 MG/0.4 ML SYRINGE SC SCH (08:55)
[2020-08-02] MEDS: Rosuvastatin 10 MG TAB PO SCH ×2 (08:55→21:04)
[2020-08-02] MEDS: Sodium Chloride 0.9% 1,000 ML IV SCH (08:55)
[2020-08-02] MEDS: Aspirin 325 MG TAB PO SCH (08:55)
[2020-08-02] MEDS: Carvedilol 6.25 MG TAB PO SCH ×2 (08:59→21:05)
--- NOTE | 2020-08-02 09:43 | PRG ---
DATE OF SERVICE: 08/02/2020 SUBJECTIVE: The patient states that he is a little more short of breath this morning than he was yesterday and overall though he feels better than 2 days ago. OBJECTIVE: VITAL SIGNS: Temperature 98.3, pulse 50, blood pressure 129/75, O2 saturation 100%. HEENT: Unremarkable. NECK: No adenopathy or JVD. LUNGS: Crackles in left. CHEST: Clear. CARDIAC: S1, S2. Regular. ABDOMEN: Soft. EXTREMITIES: No edema. LABORATORY DATA: White blood cell count 14.5, hematocrit 32.5, and platelet count 161. Sodium 138, potassium 4.2, chloride 102, CO2 of 21, BUN 21, creatinine 0.9, glucose 132. Culture showed no growth to date. Chest x-ray shows some mild improvement on the left side. ASSESSMENT: Community-acquired pneumonia-nonCOVID. PLAN: 1. Stop IV fluids. 2. Continue IV antibiotics and IV steroids. Home when he improves. Job ID: [id number]
[2020-08-02] MEDS: Azithromycin 250 MG in Sodium Chloride 0.9% 250 ML 250 ML IVPB SCH (14:52)
[2020-08-02 14:53] LABS: SARS-CoV-2 IgG Ab Non-Reactive (NonReactive); SARS-CoV-2 IgG Index 0.03 S/CO (< 1.40)
[2020-08-02] MEDS: Ramipril 5 MG CAP PO SCH (21:04)
[2020-08-02] MEDS: Terazosin HCl 1 MG CAP PO SCH (21:04)
[2020-08-02] MEDS: Zolpidem Tartrate 5 MG TAB PO PRN (21:08)
[2020-08-03 04:17] LABS: Actual Bicarbonate (HCO3a) 20.3 mEq/L (22-28); Base Excess (BEa) -3.7 mEq/L (-2.0 to +3.0); CO2 Tension 33.3 mmHg (35.0-45.0); Calcium, Ionized (arterial) 1.19 mmol/L (1.12-1.30); Carboxyhemoglobin (COHb) 0.3 gm% (0.0-3.0); Hemoglobin (Hb) 12.4 g/dL (14.0-18.0); O2 Tension (PaO2), arterial 91.3 mmHg (> 70.0)
[2020-08-03 04:20] LABS: ALV-art Gradient 66.715 (0-20); Puncture Site RRA
[2020-08-03] MEDS: Piperacillin/Tazobactam 3.375 GM in Sodium Chloride 0.9% 100 ML IVPB SCH ×4 (05:38→22:35)
[2020-08-03] MEDS: methylPREDNISolone Sod Succ 40 MG VIAL IVP SCH ×5 (05:39→22:35)
[2020-08-03] MEDS: Carvedilol 6.25 MG TAB PO SCH ×2 (08:55→20:51)
[2020-08-03] MEDS: Rosuvastatin 10 MG TAB PO SCH ×2 (08:55→20:56)
[2020-08-03] MEDS: Aspirin 325 MG TAB PO SCH (08:56)
[2020-08-03] MEDS: Enoxaparin Sodium 40 MG/0.4 ML SYRINGE SC SCH (08:57)
--- NOTE | 2020-08-03 09:17 | PRG ---
DATE OF SERVICE: 08/03/2020 SUBJECTIVE: The patient had a rough night last night. He developed an episode of bronchospasm. He required a stat nebulizer treatment. Today, he feels a little better, but he is concerned about some black mold around the AC vent in his room. OBJECTIVE: VITAL SIGNS: Temperature 98.5, pulse 49, blood pressure 175/77, and O2 saturation 97% on 2 L. HEENT: Unremarkable. NECK: No JVD. CHEST: Two crackles on the left. CARDIAC: S1 and S2. Regular. ABDOMEN: Soft. EXTREMITIES: No edema. DIAGNOSTIC DATA: Cultures show no growth to date. ASSESSMENT: 1. Community-acquired pneumonia. 2. Underlying chronic obstructive pulmonary disease. PLAN: 1. I am trying to get the hospital to move him to a different room they have offered. The patient wants to talk to an environmental aid first. 2. Continue IV antibiotics and steroids. 3. Recheck labs tomorrow. Hopefully, discharged by Friday if he is doing well. Job ID: [id number]
[2020-08-03] MEDS: cloNIDine 0.2 MG TAB PO PRN (10:21)
[2020-08-03] MEDS ORDERED: Loperamide HCl 2 MG CAP PO PRN (10:58)
[2020-08-03] MEDS: Azithromycin 250 MG in Sodium Chloride 0.9% 250 ML 250 ML IVPB SCH (15:36)
[2020-08-03] MEDS: Ramipril 5 MG CAP PO SCH (20:51)
[2020-08-03] MEDS: Terazosin HCl 1 MG CAP PO SCH (20:52)
[2020-08-03] MEDS: Zolpidem Tartrate 5 MG TAB PO PRN (20:56)
[2020-08-04] MEDS: methylPREDNISolone Sod Succ 40 MG VIAL IVP SCH (06:02)
[2020-08-04] MEDS: Piperacillin/Tazobactam 3.375 GM in Sodium Chloride 0.9% 100 ML IVPB SCH (06:04)
[2020-08-04] MEDS: cloNIDine 0.2 MG TAB PO PRN (06:20)
[2020-08-04 06:22] VITALS: TEMP 97.9
[2020-08-04 06:40] LABS: Anion Gap 14 mmol/L (10-20); BUN (Urea Nitrogen) 20 mg/dL (8.4-25.7); Calc. Creatinine Clearance 80 mL/min (70-130); Calcium 8.8 mg/dL (7.8-10.44); Carbon Dioxide 24 mmol/L (23-31); Chloride 106 mmol/L (98-107); Estimated GFR-MDRD 78; Glucose 106 mg/dL (83-110); Potassium 3.8 mmol/L (3.5-5.1); Sodium 140 mmol/L (136-145)
[2020-08-04 06:45] LABS: Band 5 % (5-11); Hemoglobin 12.2 g/dL (14.0-18.0); Hypochromia SLIGHT = 6-15 cells (100X) (0-5/hpf); Lymphocytes 9 % (21-51); MDiff Complete? YES; Mean Corpuscular Hemoglobin 30.2 pg (27.0-31.0); Mean Corpuscular Volume 91.7 fL (78.0-98.0); Mean Platelet Volume 8.4 fL (7.4-10.4); Monocytes 3 % (0-10); Neutrophil 83 % (42-75); Platelet Count 192 thou/uL (130-400); Platelet Morphology Comment Appears Adequate; Red Blood Cell (RBC) Count 4.02 mill/uL (4.70-6.10); White Blood Cell (WBC) Count 11.9 thou/uL (4.8-10.8)
--- NOTE | 2020-08-04 08:20 | DIS ---
DATE OF ADMISSION: 07/31/2020 DATE OF DISCHARGE: 08/04/2020 DISCHARGE DIAGNOSES: 1. Community-acquired pneumonia. 2. Chronic obstructive pulmonary disease. 3. Hypoxemic respiratory failure. DISCHARGE CONDITION: Stable. DISCHARGE DIET: Heart healthy. DISPOSITION: The patient is going home. Home oxygen will be set up if he qualifies with an ambulatory room air sat less than 88%. He will need 2 L nasal cannula. DISCHARGE MEDICATIONS: New medications include: 1. Augmentin 875 mg b.i.d. for 10 days. 2. Prednisone 20 mg daily for 7 days. Otherwise, he will continue the following home medications: 1. Zolpidem 5 mg nightly. 2. Terazosin 2 mg nightly. 3. Altace 5 mg daily. 4. Omeprazole 20 mg daily. 5. Crestor 10 mg daily. 6. Aspirin 325 mg daily. 7. Coreg 6.25 mg b.i.d. SUMMARY OF HOSPITALIZATION: The patient was admitted after presenting to Dr. Dailey's office with acute left lung pneumonia with severe hypoxemia. He was placed on IV Zosyn and azithromycin. Cultures were obtained, but were sterile at the time of discharge. The patient responded well to the antibiotics, steroids, and breathing treatments. He required oxygen briefly and will be rechecked to make sure he does not desaturate prior to discharge. Given his underlying COPD, he may need home oxygen for a short period of time. Job ID: [id number]
[2020-08-04] MEDS: Aspirin 325 MG TAB PO SCH (08:33)
[2020-08-04] MEDS: Carvedilol 6.25 MG TAB PO SCH (08:33)
[2020-08-04] MEDS: Enoxaparin Sodium 40 MG/0.4 ML SYRINGE SC SCH (08:34)
[2020-08-04] MEDS: Rosuvastatin 10 MG TAB PO SCH (08:34)
[2020-08-04 08:37] VITALS: BP 157/73
--- NOTE | 2020-08-04 11:58 | PQF ---
CLINICAL DOCUMENTATION CLARIFICATION FORM: Dear Dr. Dailey Date: 08/04/2020 Please exercise your independent, professional judgment in responding to the clarification form. Clinical indicators are provided on the bottom of this form for your review. Please check appropriate box(es): [x ] Sepsis due to: pneumonia [ ] Severe sepsis with associated acute organ dysfunction: [ ] Acute Respiratory Failure [ ] Additional/Other: please specify: [ ] Localized infection without sepsis [ ] Other diagnosis [ ] Unable to determine In addition, please specify: Present on Admission (POA): [ x] Yes [ ] No [ ] Unable to determine For continuity of documentation, please document condition throughout progress notes and discharge summary. Thank You. To be completed by CDI/Coding staff for physician review: CLINICAL INDICATORS - SIGNS / SYMPTOMS / LABS / RESULTS AND LOCATION IN MR 07/31 H&P (Asim) HPI: He had a fever up to 101 at home. VS: Temp 97.5; O2 sat 88% RA; pulse 114, BP 123/70 Lab Data: Chest x-ray shows a rather sizable left-sided infiltrate Assessment: Community -acquired pneumonia Acute hypoxic respiratory failure. Nursing VS: 07/31: pulse 102, Resp 22 / PN (Asim) Lab: WBC 16.4, 70% bands. Assessment: Acute bacterial pneumonia - organism unidentified pneumococcus suspected 08/03 PN (Asim) Diagnostic Data: Cultures show no growth to date. RISK FACTORS / RESULTS AND LOCATION IN MR 07/31 H&P (Asim) PMH: COPD. Pneumonia. CAD Assessment: Community-acquired pneumonia. Acute hypoxic respiratory failure. TREATMENTS / RESULTS AND LOCATION IN MR Order 07/31-08/04: Zosyn 3.375 gm IV q6 hrs Order 07/31-08/04: Azithromycin 250mg IV Thank you, Mery Fraire, RN, BSN [email or web address] This is a permanent part of the Medical Record [facility]
== END 2020-08-04 09:30 | disposition home or self-care (01) | DRG 871 ==
LOC: T4-A 14:04 → T4-B 08-03 11:34
PROVIDERS: ADMIT Internal Medicine Critical Care Medicine; ATTEND Internal Medicine Critical Care Medicine
DX: A41.9 Sepsis, unspecified organism (principal); J15.9 Unspecified bacterial pneumonia; J96.01 Acute respiratory failure with hypoxia; J44.0 Chronic obstructive pulmonary disease with (acute) lower respiratory infection; I25.10 Atherosclerotic heart disease of native coronary artery without angina pectoris; Z95.1 Presence of aortocoronary bypass graft; Z87.891 Personal history of nicotine dependence; Z79.82 Long term (current) use of aspirin; Z79.899 Other long term (current) drug therapy
CPT/HCPCS: 36415; 36600; 71045; 71046; 80048; 80053; 82805; 85025; 85060; 85610; 85730; 86769; 87040; 87635; 94640; J0456; J1650; J2543; J2920; J3490; J7050; J7620; U0003

== ENCOUNTER 2021-01-09 12:30 | Outpatient (CLI) | payer MEDICARE, BC ==
--- NOTE | 2021-01-09 12:42 | RAD ---
XR Chest Pa Lat STANDARD History: Dyspnea Comparison: Radiograph August 16, 2020 Findings: Calcified granuloma within the lingula. No confluent airspace consolidation, pneumothorax o r effusion. No acute osseous abnormality. Multiple midline sternotomy wires. Impression: No acute intrathoracic abnormality.
== END 2021-01-09 12:31 | disposition home or self-care (01) ==
LOC: BICRAD 12:30
PROVIDERS: ATTEND Internal Medicine Critical Care Medicine
DX: R06.00 Dyspnea, unspecified (principal)
CPT/HCPCS: 71046

== ENCOUNTER 2021-09-10 11:04 | Outpatient (CLI) | payer MEDICARE, BC | END 2021-09-10 11:05 | disposition home or self-care (01) | LOC: BICRAD 11:04 | PROVIDERS: ATTEND Internal Medicine Critical Care Medicine | DX: R06.00 Dyspnea, unspecified (principal) | CPT/HCPCS: 71046 ==

== ENCOUNTER 2022-03-22 10:38 | Outpatient (CLI) | payer MEDICARE, BC | END 2022-03-22 10:39 | disposition home or self-care (01) | LOC: RAD 10:38 | PROVIDERS: ATTEND Internal Medicine Critical Care Medicine | DX: R06.00 Dyspnea, unspecified (principal) | CPT/HCPCS: 71046 ==

== ENCOUNTER 2022-12-31 09:04 | Outpatient (CLI) | payer MEDICARE, BC | END 2022-12-31 09:05 | disposition home or self-care (01) | LOC: BICRAD 09:04 | PROVIDERS: ATTEND Physician Assistant Medical | DX: K21.9 Gastro-esophageal reflux disease without esophagitis (principal); R10.9 Unspecified abdominal pain; R63.0 Anorexia; Z86.010 Personal history of colon polyps | CPT/HCPCS: 36415; 71046; 80053; 83690; 84439; 84443; 85025 ==

== ENCOUNTER 2023-01-06 12:33 | Emergency (ER) | payer MEDICARE, BC ==
[~2023-01-06 12:33] MED LIST: Iopamidol 370 76% 100 ML VIAL ONE
[2023-01-06 13:06] LABS: #Eosinphils 0.2 thou/uL (0.0-0.7); #Lymphocytes 1.9 thou/uL (1.20-3.40); #Monocytes 0.6 thou/uL (0.11-0.59); #Neutrophils 4.5 thou/uL (1.40-6.50); %Basophils 0.5 % (0.0-1.0); %Eosinophils 2.5 % (0.0-10.0); %Lymphocytes 26.2 % (21.0-51.0); %Monocytes 8.3 % (0.0-10.0); %Neutrophils 62.4 % (42.0-75.0); Hemoglobin 13.9 g/dL (14.0-18.0); Mean Corpuscular HGB CONC 33.5 g/dL (32.0-36.0); Mean Corpuscular Hemoglobin 31.8 pg (27.0-31.0); Mean Corpuscular Volume 94.9 fl (78.0-98.0); Mean Platelet Volume 7.3 fL (7.4-10.4); Platelet Count 302 10x3/uL (130-400); Red Blood Cell (RBC) Count 4.38 mill/uL (4.70-6.10); White Blood Cell (WBC) Count 7.2 10x3/uL (4.8-10.8)
[2023-01-06 13:31] LABS: ALT (SGPT) 13 U/L (8-55); AST (SGOT) 24 U/L (5-34); Albumin 4.3 g/dL (3.4-4.8); Alkaline Phosphatase 87 U/L (40-110); Anion Gap 13 mmol/L (10-20); BUN (Urea Nitrogen) 8 mg/dL (8.4-25.7); Bilirubin, Total 1.3 mg/dL (0.2-1.2); Calc. Creatinine Clearance 0 mL/min (70-130); Calcium 10.1 mg/dL (7.8-10.44); Carbon Dioxide 28 mmol/L (23-31); Chloride 102 mmol/L (98-107); Estimated GFR 70; Glucose 86 mg/dL (83-110); Potassium 4.5 mmol/L (3.5-5.1); Protein, Total 7.3 g/dL (5.8-8.1); Sodium 138 mmol/L (136-145)
[2023-01-06 15:24] LABS: Bilirubin Negative (Negative); Blood, Urine Negative (Negative); Clarity Clear (Clear); Glucose, Urine (Dipstick) Normal (Negative); Ketone, Urine 40 mg/dL (Negative); Leukocyte Negative Leu/uL (Negative); Nitrite Negative (Negative); Protein, Urine (Dipstick) 10 mg/dL (Neg-Trace); Specific Gravity, Urine 1.046 (1.002-1.036); Urobilinogen Normal mg/dL (Less than 2); pH, Urine 7.5 (5.0-9.0)
[2023-01-06] MEDS ORDERED: metroNIDAZOLE 500 MG/100 ML BAG ONE (16:19)
[2023-01-06] MEDS ORDERED: Ciprofloxacin 500 MG TAB ONE (16:20)
[2023-01-06] MEDS ORDERED: Morphine 4 MG/ML VIAL ONE (16:20)
== END 2023-01-06 17:50 | disposition home or self-care (01) ==
LOC: ERS 12:33
DX: K57.90 Diverticulosis of intestine, part unspecified, without perforation or abscess without bleeding (principal); J44.9 Chronic obstructive pulmonary disease, unspecified
CPT/HCPCS: 36415; 74177; 80053; 81003; 85025; 93005; 96374; 96375; J2270; Q9967

== ENCOUNTER 2023-06-30 12:16 | Outpatient (CLI) | payer MEDICARE, BC | END 2023-06-30 12:17 | disposition home or self-care (01) | LOC: RAD 12:16 | PROVIDERS: ATTEND Internal Medicine Critical Care Medicine | DX: R06.00 Dyspnea, unspecified (principal); J18.9 Pneumonia, unspecified organism | CPT/HCPCS: 71046 ==

== ENCOUNTER 2023-10-06 14:11 | Emergency (ER) | payer MEDICARE, BC ==
[2023-10-06] MEDS ORDERED: Iopamidol-370 76% 500 ML MDV (1 ML CHARGE) ONE (14:58)
[2023-10-06 15:07] LABS: #Eosinphils 0.1 thou/uL (0.0-0.7); #Monocytes 0.9 thou/uL (0.11-0.59); #Neutrophils 6.7 thou/uL (1.40-6.50); %Basophils 0.3 % (0.0-1.0); %Eosinophils 1.4 % (0.0-10.0); %Lymphocytes 13.3 % (21.0-51.0); %Monocytes 9.9 % (0.0-10.0); %Neutrophils 74.9 % (42.0-75.0); Hemoglobin 14.3 g/dL (14.0-18.0); Mean Corpuscular Hemoglobin 30.5 pg (27.0-31.0); Mean Corpuscular Volume 89.6 fl (78.0-98.0); Mean Platelet Volume 10.3 fL (7.4-10.4); Platelet Count 187 10x3/uL (130-400); RBC Distribution Width 14.5 % (11.5-14.5); Red Blood Cell (RBC) Count 4.69 mill/uL (4.70-6.10)
[2023-10-06 15:31] LABS: ALT (SGPT) 26 U/L (8-55); AST (SGOT) 21 U/L (5-34); Albumin 4.6 g/dL (3.4-4.8); Alkaline Phosphatase 74 U/L (40-110); Anion Gap 15 mmol/L (10-20); BUN (Urea Nitrogen) 20 mg/dL (8.4-25.7); Bilirubin, Total 1.2 mg/dL (0.2-1.2); Calc. Creatinine Clearance 0 mL/min (70-130); Calcium 9.4 mg/dL (7.8-10.44); Carbon Dioxide 26 mmol/L (23-31); Chloride 97 mmol/L (98-107); Estimated GFR 62; Globulin 2.1 g/dL (2.4-3.5); Glucose 84 mg/dL (83-110); Potassium 4.3 mmol/L (3.5-5.1); Protein, Total 6.7 g/dL (5.8-8.1); Sodium 134 mmol/L (136-145)
[2023-10-06 15:34] LABS: Troponin I Less than 0.010 ng/mL (< 0.028)
[2023-10-06] MEDS ORDERED: predniSONE 20 MG TAB ONE (16:56)
== END 2023-10-06 17:05 | disposition home or self-care (01) ==
LOC: ERS 14:11
DX: U07.1 COVID-19 (principal); I25.10 Atherosclerotic heart disease of native coronary artery without angina pectoris; J44.9 Chronic obstructive pulmonary disease, unspecified; I10 Essential (primary) hypertension; Z87.891 Personal history of nicotine dependence; Z79.82 Long term (current) use of aspirin; Z79.899 Other long term (current) drug therapy
CPT/HCPCS: 36415; 71045; 71275; 80053; 83880; 84484; 85025; 93005; J7512; Q9967

== ENCOUNTER 2023-11-06 14:20 | Outpatient (CLI) | payer MEDICARE, BC | END 2023-11-06 14:21 | disposition home or self-care (01) | LOC: RAD 14:20 | PROVIDERS: ATTEND Internal Medicine Critical Care Medicine | DX: R06.00 Dyspnea, unspecified (principal) | CPT/HCPCS: 71046 ==

== ENCOUNTER 2024-02-24 11:21 | Outpatient (CLI) | payer MEDICARE, BC | END 2024-02-24 11:22 | disposition home or self-care (01) | LOC: RAD 11:21 | PROVIDERS: ATTEND Internal Medicine Critical Care Medicine | DX: R06.00 Dyspnea, unspecified (principal) | CPT/HCPCS: 71046 ==